=== PATIENT | male | born 1970 | race Caucasian/White ===

== ENCOUNTER 2016-04-15 12:13 | Emergency (ER) | payer MEDICAID ==
[2016-04-15 13:03] VITALS: BP 187/102
--- NOTE | 2016-04-15 13:57 | EDM.PDOC ---
ED HPI GENERAL MEDICAL PROBLEM - General Chief Complaint: General Stated Complaint: RIGHT PAIN Time Seen by Provider: 04/15/16 12:30 Source of Information: Reports: Patient History Limitations: Reports: No limitations - History of Present Illness INITIAL COMMENTS - FREE TEXT/NARRATIVE: 46-year-old male who's had a right inguinal hernia repair twice, including mesh placement is having difficulties again over the past several months. He has an appointment with a surgeon next week but this morning it was painful, swollen, and he was unable to reduce the hernia. He was very uncomfortable when he arrived in the emergency room, somewhat lightheaded. No fevers or chills. No change in bowel movements. Location: Reports: abdomen Quality: Reports: Sharp Severity: moderate Associated Symptoms: Reports: other (Dizziness and lightheadedness with standing ) Right Groin Pain Score (Numeric/FACES): 5 - Related Data Allergies Allergy/AdvReac Type Severity Reaction Status Date / Time No Known Allergies Allergy Verified 04/15/16 12:27 Home Meds: Home Meds Naproxen 500 mg PO BID 11/06/15 [History] Sertraline [Zoloft] 25 mg PO DAILY 11/06/15 [History] amLODIPine [Norvasc] 10 mg PO DAILY 11/06/15 [History] Hydrochlorothiazide 12.5 mg PO DAILY 04/15/16 [History] Past Medical History HEENT History: Reports: Impaired vision Other HEENT History: wears contacts occasionally Cardiovascular History: Reports: Hypertension Respiratory History: Reports: Sleep apnea Other Respiratory History: c-pap Musculoskeletal History: Reports: Fracture, Other (see below) Other Musculoskeletal History: history of broken foot many years ago Neurological History: Reports: Concussion Psychiatric History: Reports: Anxiety Dermatologic History: Reports: Cellulitis, Other (see below) Other Dermatologic History: "just getting over cellulitis to right leg" - Infectious Disease History Infectious Disease History: Reports: Chicken pox - Past Surgical History HEENT Surgical History: Reports: Tonsillectomy Cardiovascular Surgical History: Reports: None Respiratory Surgical History: Reports: None GI Surgical History: Reports: Hernia, inguinal, Other (see below) Other GI Surgeries/Procedures: right inguinal hernia repair done at least 4 years ago and 2016 Neurological Surgical History: Reports: None Musculoskeletal Surgical History: Reports: None Dermatological Surgical History: Reports: None Social & Family History - Family History Family Medical History: Noncontributory - Tobacco Use Smoking Status *Q: Never Smoker Tobacco Use Comment: currant some day smoker - Caffeine Use Caffeine Use: Reports: Soda - Alcohol Use Days Per Week of Alcohol Use: 4 Number of Drinks Per Day: 4 Total Drinks Per Week: 16 - Recreational Drug Use Recreational Drug Use: No ED ROS GENERAL - Review of Systems Review Of Systems: See Below Constitutional: Denies: fever, chills, malaise HEENT: Reports: No symptoms Respiratory: Denies: shortness of breath Endocrine: Denies: fatigue GI/Abdominal: Reports: Abdominal pain (Lower abdomen into the right groin) : Denies: frequency, urgency, urinary retention Musculoskeletal: Reports: no symptoms Neurological: Denies: headache Psychiatric: Reports: No symptoms ED EXAM, GENERAL - Physical Exam Exam: See Below Exam Limited By: No limitations General Appearance: alert, anxious, mild distress Respiratory/Chest: no respiratory distress Cardiovascular: regular rate, rhythm GI/Abdominal: soft, other (Patient has tenderness to the right groin area, exam for hernia today through the inguinal canal revealed firmness that resolved) Neurological: alert, oriented Course - Vital Signs Last Recorded V/S: Last Vital Signs Temp 99.1 F 04/15/16 12:23 Pulse 104 H 04/15/16 12:23 Resp 18 04/15/16 12:23 BP 187/102 H 04/15/16 12:23 Pulse Ox 98 04/15/16 12:23 - Orders/Labs/Meds Labs: Laboratory Tests 04/15/16 04/15/16 04/15/16 Range/Units 13:09 13:09 13:09 WBC 7.2 (4.5-11.0) K/uL RBC 4.99 (4.30-5.90) M/uL Hgb 16.9 H (12.0-15.0) g/dL Hct 47.0 (40.0-54.0) % MCV 94 (80-98) fL MCH 34 H (27-31) pg MCHC 36 (32-36) % Plt Count 256 (150-400) K/uL Neut % (Auto) 74 H (36-66) % Lymph % (Auto) 15 L (24-44) % [place] % (Auto) 10 H (2-6) % Eos % (Auto) 0 L (2-4) % Baso % (Auto) 1 (0-1) % Sodium 133 L (140-148) mmol/L Potassium 3.1 L (3.6-5.2) mmol/L Chloride 96 L (100-108) mmol/L Carbon Dioxide 26 (21-32) mmol/L Anion Gap 14.1 H (5.0-14.0) mmol/L BUN 17 (7-18) mg/dL Creatinine 0.9 (0.8-1.3) mg/dL Est Cr Clr Drug Dosing 113.77 mL/min Estimated GFR (MDRD) > 60 (>60) Glucose 124 H (74-106) mg/dL Lactic Acid 1.6 (0.4-2.0) mmol/L Calcium 8.7 (8.5-10.1) mg/dL Meds: Medications Discontinued Medications Generic Name Dose Route Start Last Admin Trade Name Freq PRN Reason Stop Dose Admin Sodium Chloride 85 mls @ 3 mls/sec 04/15/16 14:15 Normal Saline IV ASDIRECTED [facility] Iopamidol 150 ml 04/15/16 14:06 Isovue-300 (61%) IV 04/16/16 14:07 . DIRECTED PRN RADIOLOGY EXAM - Re-Assessments/Exams Free Text/Narrative Re-Assessment/Exam: 04/15/16 14:00 Patient's symptoms seemed to improve in the emergency room as a result of possible reduction of the hernia. A CBC lactic acid and BMP were obtained which were normal. An attempt was made to contact Dr. Moran his regular surgeon, and his situation was also discussed with Dr. Carolina. A CT of the abdomen and pelvis with IV contrast was obtained. 04/15/16 17:42 CT showed a fairly long fat-containing inguinal hernia on the right side with a small amount of stranding but no bowel or other material in the hernia. His pain continued to improve. Patient will return if symptoms recur or but he is planning on calling the surgical Department tomorrow to try to move his appointment closer to discuss surgery. Departure - Departure Time of Disposition: 14:49 Disposition: Home, Self-Care 01 Condition: good Clinical Impression: Inguinal hernia recurrent unilateral Qualifiers: Obstruction and gangrene presence: without obstruction or gangrene Qualified Code(s): K40.91 - Unilateral inguinal hernia, without obstruction or gangrene, recurrent Instructions: Inguinal Hernia, Adult, [id number] Referrals: PCP,None [Primary Care Provider] - Forms: ED Department Discharge Care Plan Goals: Call the clinic tomorrow to attempt to move up appt with Dr. Moran. Return sooner if concerns or recurring symptoms.
[2016-04-15] MEDS ORDERED: Iopamidol 612 MG/ML 150 ML Bottle IV PRN (14:06)
--- NOTE | 2016-04-15 14:38 | CT ---
Abdomen Pelvis w Cont HISTORY: Right groin pain. Dose: Total DLP 1433. COMPARISON: None FINDINGS: Lung bases are clear. Diffuse fatty infiltration of the liver. No focal liver lesions seen . The spleen, pancreas, adrenal glands, abdominal aorta and kidneys appear normal. The appendix appears normal. In the right inguinal region there is a fat-containing hernia measuring 4.7 cm transverse x 2.5 cm AP by 9 to 10 cm craniocaudal. Tiny fat-containing left inguinal hernia. Just above the inguinal hernia within the pelvis there is some very faint stranding to the mesenter y best seen on coronal image 40 and axial image 106. This could represent mild edema or venous conge stion. The remainder the pelvis is unremarkable. Impression: Fat-containing right inguinal hernia not involving any bowel loops. Just at the superior margin of t he fat extending into the right inguinal canal is some very faint stranding which could represent so me very mild nonspecific edema.
== END 2016-04-15 14:49 | disposition home or self-care (01) ==
LOC: JP.ED 12:13
DX: K40.91 Unilateral inguinal hernia, without obstruction or gangrene, recurrent (principal); I10 Essential (primary) hypertension; F41.9 Anxiety disorder, unspecified; Z98.890 Other specified postprocedural states; Z79.899 Other long term (current) drug therapy
CPT/HCPCS: 36415; 74177; 74177-26; 80048; 83605; 85025; 99284-25

== ENCOUNTER 2016-04-23 08:57 | Day surgery (SDC) | payer MEDICAID ==
[~2016-04-23 08:57] MED LIST: Bupivacaine 0.5%/EPINEPHrine 1:200,000 50 ML MDV ONE
[2016-04-23] MEDS ORDERED: Sodium Chloride 0.9% 1,000 ML IV SCH (09:00)
[2016-04-23] MEDS ORDERED: metroNIDAZOLE/Normal Saline 500 MG in Premix Bag 1 BAG IV ONE (10:00)
[2016-04-23] MEDS ORDERED: ceFAZolin 2 GM in Premix Bag 1 BAG IV ONE (10:00)
[2016-04-23] MEDS ORDERED: fentaNYL 250 MCG/5 ML SDV ONE (10:28)
[2016-04-23] MEDS ORDERED: Propofol 200 MG/20 ML SDV ONE ×3 (10:28→10:44)
[2016-04-23] MEDS ORDERED: Midazolam 1 MG/ML 2 ML SDV ONE (10:28)
[2016-04-23] MEDS ORDERED: Bupivacaine 0.5% 50 ML MDV ONE (10:29)
[2016-04-23] MEDS ORDERED: Lidocaine 1% with EPINEPHrine 1:100,000 50 ML MDV ONE (10:29)
[2016-04-23] MEDS ORDERED: Ondansetron 4 MG/2 ML SDV ONE (10:55)
[2016-04-23] MEDS ORDERED: Succinylcholine/Normal Saline 200 MG/10 ML Syringe ONE (10:55)
[2016-04-23] MEDS ORDERED: Rocuronium 50 MG/5 ML Vial ONE (10:55)
[2016-04-23] MEDS ORDERED: Dexamethasone 4 MG/ML SDV ONE (10:55)
[2016-04-23] MEDS ORDERED: Neostigmine Methylsulfate 1 MG/ML 5 ML Syringe ONE (11:04)
[2016-04-23] MEDS ORDERED: Acetaminophen/HYDROcodone 325-5 MG Tab PO ONE (13:58)
[2016-04-23 14:39] VITALS: BP 147/82
--- NOTE | 2016-05-15 08:54 | OR ---
DATE OF PROCEDURE: 04/23/2016 PROCEDURE: Repair of inguinal hernia, right, recurrent. COMPLICATIONS: None. FOUNDRY TENDER: None. ANESTHESIA: MAC converted to general. PROCEDURE IN DETAIL: The patient was placed in supine position. The right inguinal area was readily identified. A curvilinear incision was made from the area of the ring about 5 cm lateral. This was then carried down with electrocautery to the external oblique aponeurosis, which was opened with a 15 blade and subsequently Metzenbaum scissors. The patient was noted to have recurrent incarcerated non-strangulated hernia. Over the next approximately 15-20 minutes, dissection was performed by identifying the sac and dissecting the sac free from its cord structures. This was then placed deep into the abdomen using a plug and patch system, which was stitched in with #0 Vicryl suture. 0 Vicryl was used to suture this in, and careful attention was made not to put undue tension on the cord structures. 3-0 Vicryl was used to close the external oblique aponeurosis after irrigation. Subcutaneous tissue was closed with 3-0 Vicryl. Skin was closed with 4-0 Vicryl. All in a running fashion. Dermabond was applied. The patient tolerated the procedure well. Dusty Moran MD /[id number]
== END 2016-04-23 14:30 | disposition home or self-care (01) ==
LOC: JP.SDS 08:57
PROVIDERS: ATTEND Surgery
PROC: 0YU50JZ Supplement Right Inguinal Region with Synthetic Substitute, Open Approach (ICD-10-PCS; principal; 2016-04-23)
DX: K40.90 Unilateral inguinal hernia, without obstruction or gangrene, not specified as recurrent (principal); I10 Essential (primary) hypertension; F41.9 Anxiety disorder, unspecified; G47.33 Obstructive sleep apnea (adult) (pediatric); E66.9 Obesity, unspecified; Z68.35 Body mass index [BMI] 35.0-35.9, adult; Z87.891 Personal history of nicotine dependence
CPT/HCPCS: 49521; A9270; C1781; J0690; J1100; J2250; J2405; J2704; J3010; J7040

== ENCOUNTER 2016-08-09 13:28 | Emergency (ER) | payer MEDICAID ==
[2016-08-09 13:42] VITALS: BP 146/84
[2016-08-09] MEDS ORDERED: HYDROmorphone 1 MG/ML Syringe IVPUSH ONE (13:46)
[2016-08-09] MEDS ORDERED: Ondansetron 4 MG/2 ML SDV IVPUSH ONE (13:46)
[2016-08-09] MEDS ORDERED: Sodium Chloride 0.9% 10 ML Syringe FLUSH PRN (13:47)
--- NOTE | 2016-08-09 13:57 | EDM.PDOC ---
ED HPI GENERAL MEDICAL PROBLEM - General Stated Complaint: R LEG INJURY Time Seen by Provider: 08/09/16 13:46 Source of Information: Reports: Patient, Family, RN Notes Reviewed History Limitations: Reports: No Limitations - History of Present Illness INITIAL COMMENTS - FREE TEXT/NARRATIVE: 46-year-old gentleman presents emergency department today following trauma at home a he was unloading logs from a skid steer one of the box fell landed on his right thigh and onto his right foot he's experiencing pain in his thigh and his foot he did not lose consciousness the log did not hit any place else he did not fall to the ground. Right Leg Pain Score (Numeric/FACES): 10 - Related Data Allergies Allergy/AdvReac Type Severity Reaction Status Date / Time No Known Allergies Allergy Verified 08/09/16 14:20 Home Meds: Home Meds Naproxen 500 mg PO BID 11/06/15 [History] Sertraline [Zoloft] 25 mg PO DAILY 11/06/15 [History] amLODIPine [Norvasc] 10 mg PO DAILY 11/06/15 [History] Hydrochlorothiazide 25 mg PO DAILY 04/15/16 [History] Past Medical History HEENT History: Reports: Impaired Vision Other HEENT History: wears contacts occasionally Cardiovascular History: Reports: Hypertension Respiratory History: Reports: Sleep Apnea Other Respiratory History: c-pap Musculoskeletal History: Reports: Fracture, Other (See Below) Other Musculoskeletal History: history of broken foot many years ago Neurological History: Reports: Concussion Psychiatric History: Reports: Anxiety Dermatologic History: Reports: Cellulitis, Other (See Below) Other Dermatologic History: "just getting over cellulitis to right leg" - Infectious Disease History Infectious Disease History: Reports: Chicken Pox - Past Surgical History GI Surgical History: Reports: Hernia, Inguinal, Other (See Below) Social & Family History - Family History Family Medical History: Noncontributory - Tobacco Use Smoking Status *Q: Current Some Day Smoker Years of Tobacco use: 2 Packs/Tins Daily: 0.5 Used Tobacco, but Quit: No Second Hand Smoke Exposure: No - Caffeine Use Caffeine Use: Reports: Soda - Alcohol Use Days Per Week of Alcohol Use: 6 Number of Drinks Per Day: 6 Total Drinks Per Week: 36 - Recreational Drug Use Recreational Drug Use: No Review of Systems - Review of Systems Review Of Systems: See Below Constitutional: Reports: No Symptoms Respiratory: Reports: No Symptoms Cardiovascular: Reports: No Symptoms GI/Abdominal: Reports: No Symptoms Musculoskeletal: Reports: Leg Pain Skin: Reports: No Symptoms Neurological: Reports: No Symptoms ED EXAM, GENERAL - Physical Exam Exam: See Below Free Text/Narrative:: Primary survey GCS of 15 airway is open patent clear lungs are clear to auscultation bilaterally cardiovascular demonstrates regular rate and rhythm S1-S2 Secondary survey Examination of lower extremity pelvic rock is negative he has a large hematoma superior to the knee on the right side there is significant bruising appreciated in this area about the size of a basketball he is exquisitely tender to the touch he has no difficulty moving his knee however when he does bend his knee does cause pain in the thigh there is no tenderness to palpation to the calf muscle he has full range of motion of his ankle without tenderness he does have tenderness to the distal aspect of his foot pedal pulses 2+ Tertiary survey After cleansing of the right foot and soaking were able to identify a laceration approximately 1 cm in length at the distal phalangeal joint plantar surface digit #2 Respiratory/Chest: No Respiratory Distress, Lungs Clear, Normal Breath Sounds, No Accessory Muscle Use Cardiovascular: Regular Rate, Rhythm, No Murmur GI/Abdominal: Soft, Non-Tender ED TRAUMA EXTREMITY PROCEDURES - Laceration/Wound Repair Right Foot Lac/Wound Length In cm: 1 Appearance: Subcutaneous, Linear Distal NVT: Neuro & Vascular Intact, No Tendon Injury Anesthetic Type: Digital Local Anesthesia - Lidocaine (Xylocaine): 1% Plain Local Anesthetic Volume: 3cc Skin Prep: Saline Saline Irrigation (cc's): 120 Exploration/Debridement/Repair: Wound Explored, in a Bloodless Field, Explored to Base Closed With: Sutures Suture Size: 4-0 # of Sutures: 2 Suture Type: Prolene Sterile Dressing Applied: Nurse Tetanus Status Addressed: Yes Complications: No Course - Vital Signs Last Recorded V/S: Last Vital Signs Temp 98.2 F 08/09/16 13:41 Pulse 79 08/09/16 13:41 Resp 22 H 08/09/16 13:41 BP 146/84 H 08/09/16 13:41 Pulse Ox 100 08/09/16 13:41 - Orders/Labs/Meds Orders: Active Orders 24 hr Category Date Time Status Peripheral IV Care [RC] . DIRECTED Care 08/09/16 13:48 Active Femur Min 2V Rt [CR] Stat Exams 08/09/16 13:47 Taken Foot Comp Min 3V Rt [CR] Stat Exams 08/09/16 13:47 Taken Knee 1V or 2V Rt [CR] Stat Exams 08/09/16 13:47 Taken Tibia Fibula Rt [CR] Stat Exams 08/09/16 13:47 Taken Sodium Chloride 0.9% [Saline Flush] Med 08/09/16 13:47 Active 10 ml FLUSH ASDIRECTED PRN Peripheral IV Insertion Adult [OM.PC] Urgent Oth 08/09/16 13:47 Ordered Medication Orders Sodium Chloride (Saline Flush) 10 ml FLUSH ASDIRECTED PRN PRN Reason: Keep Vein Open Last Admin: 08/09/16 14:04 Dose: 10 ml Labs: Laboratory Tests 08/09/16 08/09/16 Range/Units 13:47 13:47 WBC 5.7 (4.5-11.0) K/uL RBC 4.18 L (4.30-5.90) M/uL Hgb 15.6 H (12.0-15.0) g/dL Hct 40.1 (40.0-54.0) % MCV 96 (80-98) fL MCH 37 H (27-31) pg MCHC 39 H (32-36) % Plt Count 194 (150-400) K/uL Neut % (Auto) 46 (36-66) % Lymph % (Auto) 21 L (24-44) % [place] % (Auto) 30 H (2-6) % Eos % (Auto) 0 L (2-4) % Baso % (Auto) 2 H (0-1) % Sodium 128 L (140-148) mmol/L Potassium 3.7 (3.6-5.2) mmol/L Chloride 93 L (100-108) mmol/L Carbon Dioxide 21 (21-32) mmol/L Anion Gap 17.7 H (5.0-14.0) mmol/L BUN 16 (7-18) mg/dL Creatinine 0.8 (0.8-1.3) mg/dL Est Cr Clr Drug Dosing 127.99 mL/min Estimated GFR (MDRD) > 60 (>60) Glucose 280 H (74-106) mg/dL Calcium 10.5 H D (8.5-10.1) mg/dL Meds: Medications Generic Name Dose Route Start Last Admin Trade Name Juddq PRN Reason Stop Dose Admin Sodium Chloride 10 ml 08/09/16 13:47 08/09/16 14:04 Saline Flush FLUSH 10 ml ASDIRECTED PRN Administration Keep Vein Open Discontinued Medications Generic Name Dose Route Start Last Admin Trade Name Juddq PRN Reason Stop Dose Admin Bacitracin 1 dose 08/09/16 15:11 Bacitracin Oint 1 Gm TOP 08/09/16 15:12 ONETIME ONE Cefazolin Sodium 1 gm 08/09/16 15:30 Ancef IM 08/09/16 15:31 ONETIME ONE Hydromorphone HCl 1 mg 08/09/16 13:46 08/09/16 13:58 Dilaudid IVPUSH 08/09/16 13:47 1 mg ONETIME ONE Administration Lidocaine HCl 5 ml 08/09/16 15:18 Xylocaine-Mpf 1% INJECT 08/09/16 15:19 ONETIME ONE Ondansetron HCl 4 mg 08/09/16 13:46 08/09/16 13:56 Zofran IVPUSH 08/09/16 13:47 4 mg ONETIME ONE Administration Departure - Departure Time of Disposition: 16:07 Disposition: Home, Self-Care 01 Condition: Good Clinical Impression: Closed fracture of phalanx of right great toe Qualifiers: Encounter type: initial encounter Phalanx: distal Fracture alignment: nondisplaced Qualified Code(s): S92.424A - Nondisplaced fracture of distal phalanx of right great toe, initial encounter for closed fracture Thigh hematoma Qualifiers: Encounter type: initial encounter Laterality: right Qualified Code(s): S70.11XA - Contusion of right thigh, initial encounter Laceration of toe, right Qualifiers: Encounter type: initial encounter Toe: lesser toe Damage to nail status: without damage Foreign body presence: without foreign body Qualified Code(s): S91.114A - Laceration without foreign body of right lesser toe(s) without damage to nail, initial encounter - Discharge Information Additional Instructions: Use ibuprofen for baseline pain control, use hydrocodone for breakthrough pain, remaining a boot until reevaluated by orthopedics tomorrow call return to the ED with worsening of symptoms suture removal in 10 days - My Orders Last 24 Hours: My Active Orders 08/09/16 13:47 Femur Min 2V Rt [CR] Stat Foot Comp Min 3V Rt [CR] Stat Knee 1V or 2V Rt [CR] Stat Tibia Fibula Rt [CR] Stat Sodium Chloride 0.9% [Saline Flush] 10 ml FLUSH ASDIRECTED PRN Peripheral IV Insertion Adult [OM.PC] Urgent 08/09/16 13:48 Peripheral IV Care [RC] . DIRECTED - Assessment/Plan Last 24 Hours: My Active Orders 08/09/16 13:47 Femur Min 2V Rt [CR] Stat Foot Comp Min 3V Rt [CR] Stat Knee 1V or 2V Rt [CR] Stat Tibia Fibula Rt [CR] Stat Sodium Chloride 0.9% [Saline Flush] 10 ml FLUSH ASDIRECTED PRN Peripheral IV Insertion Adult [OM.PC] Urgent 08/09/16 13:48 Peripheral IV Care [RC] . DIRECTED Plan: Assessment Acuity = acute Site and laterality = distal phalangeal fracture great toe right foot with thigh hematoma Etiology = secondary to logging trauma Manifestations = pain Location of injury = home Lab values = blood work unreliable secondary to severe lipemia, x-rays femur knee tib-fib show no fracture, x-ray of the foot shows a distal phalangeal fracture official read radiology is pending Plan Discuss case with orthopedics they agreed to see him tomorrow in clinic he will be placed in a boot [employer] Walker he has crutches at home he will need use if needed, also has hydrocodone to use if needed, tetanus 3 years ago he was provided 1 g Ancef today Patient was in agreement with the plan all questions were answered, they were instructed to return to the emergency department or call for worsening symptoms. This note was dictated using [employer] voice recognition software please call with any questions.
[2016-08-09] MEDS ORDERED: Bacitracin Oint 1 GM U/D Packet TOP ONE (15:11)
[2016-08-09] MEDS ORDERED: ceFAZolin 1 GM Vial IM ONE (15:30)
[2016-08-09] MEDS ORDERED: ceFAZolin 1 GM Vial ONE (16:14)
[2016-08-09] MEDS ORDERED: Water For Injection, Sterile 10 ML SDV ONE (16:18)
--- NOTE | 2016-08-10 09:23 | CR ---
Femur Min 2V Rt HISTORY: Trauma COMPARISON: None FINDINGS: Right femur demonstrates no fracture. No dislocation of the right hip.
--- NOTE | 2016-08-10 09:24 | CR ---
Knee 1V or 2V Rt HISTORY: Trauma COMPARISON: None FINDINGS: No fracture or effusion. No bony destructive process seen. Well corticated calcification a t the lower margin of the patella likely representing old trauma or possibly calcification of a port ion of the patellar tendon.
--- NOTE | 2016-08-10 09:25 | CR ---
Tibia Fibula Rt HISTORY: Trauma COMPARISON: None FINDINGS: Right tibia fibula demonstrate no fracture or bony destructive process.
--- NOTE | 2016-08-10 09:26 | CR ---
Foot Comp Min 3V Rt HISTORY: Trauma COMPARISON: None FINDINGS: Comminuted fracture of the distal phalanx of the great toe. Small fracture of the tuft of the second toe as well. Mild degenerative change first MTP joint. Small spur inferior calcaneus.
== END 2016-08-09 17:05 | disposition home or self-care (01) ==
LOC: JP.ED 13:28
DX: S92.424A Nondisplaced fracture of distal phalanx of right great toe, initial encounter for closed fracture (principal); S91.114A Laceration without foreign body of right lesser toe(s) without damage to nail, initial encounter; S70.11XA Contusion of right thigh, initial encounter; H54.7 Unspecified visual loss; I10 Essential (primary) hypertension; F17.210 Nicotine dependence, cigarettes, uncomplicated; Z79.899 Other long term (current) drug therapy; W20.8XXA Other cause of strike by thrown, projected or falling object, initial encounter
CPT/HCPCS: 12001; 36415; 73552; 73560; 73590; 73630; 80048; 85025; 96374; 96375; 99284; J0690; J1170; J2405; J7050

== ENCOUNTER 2016-08-11 20:05 | Emergency (ER) | payer MEDICAID ==
[2016-08-11 21:22] VITALS: BP 138/88
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
[2016-08-11] MEDS ORDERED: HYDROmorphone 1 MG/ML Syringe IM ONE (22:27)
== END 2016-08-11 22:41 | disposition home or self-care (01) ==
LOC: JP.ED 20:05
DX: S80.11XD Contusion of right lower leg, subsequent encounter (principal); I10 Essential (primary) hypertension; F41.9 Anxiety disorder, unspecified; F17.210 Nicotine dependence, cigarettes, uncomplicated; Z79.899 Other long term (current) drug therapy; W22.8XXD Striking against or struck by other objects, subsequent encounter
CPT/HCPCS: 36415; 80048; 85025; 85610; 96372; 99284; J1170

== ENCOUNTER 2016-08-12 10:46 | Day surgery (SDC) | payer MEDICAID ==
[~2016-08-12 10:46] MED LIST changes: +Bupivacaine 0.5% 50 ML MDV ONE; -Bupivacaine 0.5%/EPINEPHrine 1:200,000 50 ML MDV ONE; +Lidocaine 1% with EPINEPHrine 1:100,000 50 ML MDV ONE
[2016-08-12] MEDS ORDERED: Lactated Ringers 1,000 ML IV SCH (11:30)
[2016-08-12] MEDS ORDERED: Midazolam 1 MG/ML 2 ML SDV ONE (12:54)
[2016-08-12] MEDS ORDERED: fentaNYL 100 MCG/2 ML SDV ONE (12:54)
[2016-08-12] MEDS ORDERED: Propofol 200 MG/20 ML SDV ONE ×4 (12:54→13:24)
[2016-08-12 14:24] VITALS: BP 104/40
--- NOTE | 2016-08-12 14:27 | US ---
Extremity Non Vascular Rt HISTORY: Hematoma. COMPARISON: None FINDINGS: Patient had injury to right thigh on Wednesday. There is a complex area seen in the area of t rauma measuring 7.3 x 3.2 x 5.3 cm compatible with hematoma. This is fairly complex and would likely not be drainable percutaneously.
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
== END 2016-08-12 14:36 | disposition home or self-care (01) ==
LOC: JP.SDS 10:46
PROVIDERS: ATTEND Surgery
DX: S70.11XA Contusion of right thigh, initial encounter (principal); I10 Essential (primary) hypertension; G47.30 Sleep apnea, unspecified; F41.9 Anxiety disorder, unspecified; Z79.899 Other long term (current) drug therapy; W22.8XXA Striking against or struck by other objects, initial encounter; Z98.890 Other specified postprocedural states; F17.210 Nicotine dependence, cigarettes, uncomplicated
CPT/HCPCS: 27301; 76881; J2250; J2704; J3010; J7120; 88304

== ENCOUNTER → 2016-10-09 | Day surgery (SDC) | payer MEDICAID ==
[~2016-10-09] MED LIST changes: +Ketorolac 60 MG/2 ML SDV ONE; +Midazolam 1 MG/ML 2 ML SDV ONE; +Propofol 200 MG/20 ML SDV ONE; +Sodium Chloride 0.9% 1,000 ML IV SCH; +ceFAZolin 2 GM in Sodium Chloride 0.9% 50 ML IV ONE; +fentaNYL 100 MCG/2 ML SDV ONE
[2016-10-09 11:40] VITALS: BP 162/99
--- NOTE | 2016-10-12 07:45 | OR ---
DATE OF PROCEDURE: 10/09/2016 PROCEDURE: Evacuation hematoma, right side. COMPLICATIONS: None. PREOPERATIVE DIAGNOSIS: Hematoma. POSTOPERATIVE DIAGNOSIS: Hematoma. RISK: Risks, benefits, alternatives, limitations including, but not limited to infection, bleeding, perforation, and a recurrent surgery were explained and patient wished to proceed. PROCEDURE IN DETAIL: The patient was placed in supine position. The leg was prepped and draped. This was anesthetized with 1% lidocaine. A 1 cm incision was made, and this was carried down to the area of the hematoma. There was very minimal hematoma noted. This confirmed to be the correct location as this was marked with ultrasound and as at the correct depth. This was thoroughly irrigated. The wound was closed with 3-0 Vicryl and 4-0 Prolene thereafter in running fashion, and a piece of quarter-inch iodoform gauze was placed in there. Dusty Moran MD /[id number]
== END ==
LOC: JP.SDS 07:59
PROVIDERS: ATTEND Surgery
DX: S70.11XD Contusion of right thigh, subsequent encounter (principal); I10 Essential (primary) hypertension; F10.10 Alcohol abuse, uncomplicated; E87.1 Hypo-osmolality and hyponatremia; E66.9 Obesity, unspecified; F41.9 Anxiety disorder, unspecified; G47.33 Obstructive sleep apnea (adult) (pediatric); F17.210 Nicotine dependence, cigarettes, uncomplicated; Z99.89 Dependence on other enabling machines and devices; Z98.890 Other specified postprocedural states; Z79.899 Other long term (current) drug therapy; Z68.41 Body mass index [BMI] 40.0-44.9, adult
CPT/HCPCS: 10140; 76998; J0690; J1885; J2250; J2704; J3010; J7040; J7050

== ENCOUNTER 2016-10-15 12:47 | Emergency (ER) | payer MEDICAID ==
[2016-10-15 13:09] VITALS: BP 161/105
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
--- NOTE | 2016-10-15 14:29 | CT ---
Head wo Cont INDICATION: Seizure. Dose: Total DLP 910. FINDINGS: No acute intracranial hemorrhage, mass, or edema. Visualized portions of the paranasal sinu ses and mastoid air cells are clear. Soft tissues are negative. IMPRESSION: Negative head CT.
== END 2016-10-15 15:38 | disposition home or self-care (01) ==
LOC: JP.ED 12:47
DX: G40.89 Other seizures (principal); S00.532A Contusion of oral cavity, initial encounter; I10 Essential (primary) hypertension; F32.9 Major depressive disorder, single episode, unspecified; F41.9 Anxiety disorder, unspecified; F17.210 Nicotine dependence, cigarettes, uncomplicated; Z79.899 Other long term (current) drug therapy; Z98.890 Other specified postprocedural states; X58.XXXA Exposure to other specified factors, initial encounter
CPT/HCPCS: 36415; 70450; 70450-26; 80053; 83735; 85025; 99284-25

== ENCOUNTER 2017-06-15 08:40 | Inpatient (IN) | payer MEDICAID ==
--- NOTE | 2017-06-15 09:24 | EDM.PDOC ---
ED HPI GENERAL MEDICAL PROBLEM - General Chief Complaint: Abdominal Pain Stated Complaint: MID EPIGASTRIC PAIN,VOMITING Time Seen by Provider: 06/15/17 09:20 Source of Information: Reports: Patient History Limitations: Reports: No Limitations - History of Present Illness INITIAL COMMENTS - FREE TEXT/NARRATIVE: Pt arrived with very pain in the epigastric area. The pain at this point is better. He had very severe pain yesterday and less today. As the day has passed it has gradually gotten better. Onset: Gradual Duration: Day(s):, Other (He has been doing some vomiting for about 1 week. ) Location: Reports: Abdomen Associated Symptoms: Reports: No Other Symptoms Upper Abdominal Pain Score (Numeric/FACES): 4 - Related Data Allergies Allergy/AdvReac Type Severity Reaction Status Date / Time No Known Allergies Allergy Verified 10/09/16 08:47 Home Meds: Home Meds Naproxen 500 mg PO ASDIRECTED PRN 11/06/15 [History] amLODIPine [Norvasc] 10 mg PO DAILY 11/06/15 [History] Hydrochlorothiazide 25 mg PO DAILY 04/15/16 [History] Sertraline [Zoloft] 25 mg PO DAILY 06/15/17 [History] Past Medical History HEENT History: Reports: Impaired Vision Other HEENT History: wears contacts occasionally Cardiovascular History: Reports: Hypertension Respiratory History: Reports: Sleep Apnea Other Respiratory History: c-pap Gastrointestinal History: Reports: None Genitourinary History: Reports: None Musculoskeletal History: Reports: Fracture, Other (See Below) Other Musculoskeletal History: history of broken foot many years ago cURRENT FX R GREAT TOE Neurological History: Reports: Concussion Psychiatric History: Reports: Anxiety Endocrine/Metabolic History: Reports: None Hematologic History: Reports: None Immunologic History: Reports: None Oncologic (Cancer) History: Reports: None Dermatologic History: Reports: Cellulitis Other Dermatologic History: "just getting over cellulitis to right leg" - Infectious Disease History Infectious Disease History: Reports: Chicken Pox, MRSA Other Infectious Disease History: MRSA RIGHT KNEE 4 YEARS AGO - Past Surgical History Head Surgeries/Procedures: Reports: None HEENT Surgical History: Reports: Tonsillectomy Cardiovascular Surgical History: Reports: None Respiratory Surgical History: Reports: None GI Surgical History: Reports: Hernia, Inguinal Neurological Surgical History: Reports: None Musculoskeletal Surgical History: Reports: None Social & Family History - Family History Family Medical History: Noncontributory - Tobacco Use Smoking Status *Q: Heavy Tobacco Smoker Years of Tobacco use: 2 Packs/Tins Daily: 0.5 Used Tobacco, but Quit: No Second Hand Smoke Exposure: No - Caffeine Use Caffeine Use: Reports: Soda - Alcohol Use Days Per Week of Alcohol Use: 7 Number of Drinks Per Day: 2 Total Drinks Per Week: 14 - Recreational Drug Use Recreational Drug Use: No ED ROS GENERAL - Review of Systems Review Of Systems: See Below Constitutional: Reports: No Symptoms HEENT: Reports: No Symptoms Respiratory: Reports: No Symptoms Cardiovascular: Reports: No Symptoms Endocrine: Reports: No Symptoms GI/Abdominal: Reports: Abdominal Pain, Vomiting, Other ( emesis looks coffee ground) : Reports: No Symptoms Musculoskeletal: Reports: No Symptoms Skin: Reports: No Symptoms ED EXAM, GI/ABD - Physical Exam Exam: See Below Text/Narrative:: pt arrived with a history of upper abdomanal pain which was very severe yesterday but still present to a lesser degree today. He has been vomiting coffee ground material. He has a history of vomiting on and off for 2 weeks. He began to notice the coffee ground material in the last few days. He is scheduled for a rt inguinal hernia repair in [place] next week. Exam Limited By: No Limitations General Appearance: Alert, Moderate Distress Eyes: Bilateral: Normal Appearance, EOMI Ears: Normal TMs Nose: Normal Inspection Throat/Mouth: Normal Inspection Head: Atraumatic Neck: Normal Inspection Respiratory/Chest: No Respiratory Distress Cardiovascular: Regular Rate, Rhythm GI/Abdominal Exam: Other ( Mild epigastri tenderness) (Male) Exam: Deferred Rectal (Males) Exam: Deferred Back Exam: Normal Inspection Extremities: Normal Inspection Neurological: Alert, Oriented, Normal Cognition Psychiatric: Anxious Course - Vital Signs Last Recorded V/S: Last Vital Signs Temp 37.0 C 06/15/17 09:14 Pulse 69 06/15/17 09:14 Resp 18 06/15/17 09:14 BP 137/82 06/15/17 09:14 Pulse Ox 98 06/15/17 09:14 - Orders/Labs/Meds Orders: Active Orders 24 hr Category Date Time Status Abdomen Ltd [US] Stat Exams 06/15/17 10:24 Taken Abdomen Pelvis w Cont [CT] Stat Exams 06/15/17 10:52 Taken UA W/MICROSCOPIC [URIN] Urgent Lab 06/15/17 09:05 Ordered Iopamidol [Isovue-300 (61%)] Med 06/15/17 11:15 Active 150 ml IV . DIRECTED Sodium Chloride 0.9% [Normal Saline] 1,000 ml Med 06/15/17 09:30 Active IV ASDIRECTED Sodium Chloride 0.9% [Normal Saline] 1,000 ml Med 06/15/17 10:30 Active IV ASDIRECTED Sodium Chloride 0.9% [Saline Flush] Med 06/15/17 11:05 Active 10 ml FLUSH ONETIME PRN Medication Orders Sodium Chloride (Normal Saline) 1,000 mls @ 999 mls/hr IV ASDIRECTED [facility] Last Admin: 06/15/17 09:35 Dose: 999 mls/hr Sodium Chloride (Normal Saline) 1,000 mls @ 999 mls/hr IV ASDIRECTED [facility] Last Admin: 06/15/17 10:57 Dose: 999 mls/hr Iopamidol (Isovue-300 (61%)) 150 ml IV . DIRECTED [facility] Last Admin: 06/15/17 11:16 Dose: 150 ml Sodium Chloride (Saline Flush) 10 ml FLUSH ONETIME PRN PRN Reason: PER RADIOLOGY PROTOCOL Last Admin: 06/15/17 11:16 Dose: 10 ml Labs: Laboratory Tests 06/15/17 06/15/17 06/15/17 Range/Units 09:05 09:16 09:16 WBC 6.4 (4.5-11.0) K/uL RBC 4.15 L (4.30-5.90) M/uL Hgb 14.3 D (12.0-15.0) g/dL Hct 39.2 L (40.0-54.0) % MCV 95 (80-98) fL MCH 35 H (27-31) pg MCHC 37 H (32-36) % Plt Count 99 L (150-400) K/uL Neut % (Auto) 74 H (36-66) % Lymph % (Auto) 15 L (24-44) % [place] % (Auto) 11 H (2-6) % Eos % (Auto) 0 L (2-4) % Baso % (Auto) 1 (0-1) % Sodium 131 L (140-148) mmol/L Potassium 3.5 L (3.6-5.2) mmol/L Chloride 93 L (100-108) mmol/L Carbon Dioxide 24 (21-32) mmol/L Anion Gap 17.5 H (5.0-14.0) mmol/L BUN 9 (7-18) mg/dL Creatinine 0.7 L (0.8-1.3) mg/dL Est Cr Clr Drug Dosing 144.73 mL/min Estimated GFR (MDRD) > 60 (>60) Glucose 181 H (74-106) mg/dL Calcium 6.7 L* D (8.5-10.1) mg/dL Total Bilirubin 1.7 H (0.2-1.0) mg/dL AST 227 H D (15-37) U/L ALT 63 (12-78) U/L Alkaline Phosphatase 208 H D (46-116) U/L Total Protein 6.1 L (6.4-8.2) g/dL Albumin 2.5 L (3.4-5.0) g/dL Globulin 3.6 H (2.3-3.5) g/dL Albumin/Globulin Ratio 0.7 L (1.2-2.2) Amylase 48 (25-115) U/L Lipase 667 H (73-393) U/L Urine Color Yellow Urine Appearance Clear Urine pH 7.0 (4.5-8.0) Ur Specific [place] 1.010 (1.008-1.030) Urine Protein Negative (NEGATIVE) mg/dL Urine Glucose (UA) Normal (NEGATIVE) mg/dL Urine Ketones Negative (NEGATIVE) mg/dL Urine Occult Blood Negative (NEGATIVE) Urine Nitrite Negative (NEGAITVE) Urine Bilirubin Negative (NEGATIVE) Urine Urobilinogen 1 (NORMAL) mg/dL Ur Leukocyte Esterase Negative (NEGATIVE) Urine RBC 0-5 (0-5) Urine WBC Not seen (0-5) Ur Epithelial Cells Not seen Amorphous Sediment Few Urine Bacteria Not seen Urine Mucus Not seen Meds: Medications Generic Name Dose Route Start Last Admin Trade Name Freq PRN Reason Stop Dose Admin Sodium Chloride 1,000 mls @ 999 mls/hr 06/15/17 09:30 06/15/17 09:35 Normal Saline IV 999 mls/hr ASDIRECTED [facility] Administration Sodium Chloride 1,000 mls @ 999 mls/hr 06/15/17 10:30 06/15/17 10:57 Normal Saline IV 999 mls/hr ASDIRECTED [facility]STELLE Administration Iopamidol 150 ml 06/15/17 11:15 06/15/17 11:16 Isovue-300 (61%) IV 150 ml . DIRECTED [facility] Administration Sodium Chloride 10 ml 06/15/17 11:05 06/15/17 11:16 Saline Flush FLUSH 10 ml ONETIME PRN Administration PER RADIOLOGY PROTOCOL Discontinued Medications Generic Name Dose Route Start Last Admin Trade Name Jo PRN Reason Stop Dose Admin Sodium Chloride 85 mls @ 3 mls/sec 06/15/17 11:05 06/15/17 11:16 Normal Saline IV 06/15/17 11:06 3 mls/sec ONETIME ONE Administration Pantoprazole Sodium 40 mg 06/15/17 10:22 06/15/17 10:57 Protonix Iv IVPUSH 06/15/17 10:23 40 mg ONETIME ONE Administration - Re-Assessments/Exams Free Text/Narrative Re-Assessment/Exam: 06/15/17 11:35 Pt has an elevated lipase, his liver enzymes are elevated, His cat scan of the abdoman shows stranding around the pancreas. His serum is very hyperlipemic Departure - Departure Time of Disposition: 11:37 Disposition: Admitted As Inpatient 67 Condition: Fair Clinical Impression: Hyperlipemia, Pancreatitis, Coffee ground emesis, Hyperglycemia, Enlarged liver - Discharge Information Referrals: PCP,None [Primary Care Provider] - Forms: ED Department Discharge Care Plan Goals: admit to Dr montero - My Orders Last 24 Hours: My Active Orders 06/15/17 09:05 UA W/MICROSCOPIC [URIN] Urgent 06/15/17 09:30 Sodium Chloride 0.9% [Normal Saline] 1,000 ml IV ASDIRECTED 06/15/17 10:24 Abdomen Ltd [US] Stat 06/15/17 10:30 Sodium Chloride 0.9% [Normal Saline] 1,000 ml IV ASDIRECTED 06/15/17 10:52 Abdomen Pelvis w Cont [CT] Stat 06/15/17 11:05 Sodium Chloride 0.9% [Saline Flush] 10 ml FLUSH ONETIME PRN 06/15/17 11:15 Iopamidol [Isovue-300 (61%)] 150 ml IV . DIRECTED - Assessment/Plan Last 24 Hours: My Active Orders 06/15/17 09:05 UA W/MICROSCOPIC [URIN] Urgent 06/15/17 09:30 Sodium Chloride 0.9% [Normal Saline] 1,000 ml IV ASDIRECTED 06/15/17 10:24 Abdomen Ltd [US] Stat 06/15/17 10:30 Sodium Chloride 0.9% [Normal Saline] 1,000 ml IV ASDIRECTED 06/15/17 10:52 Abdomen Pelvis w Cont [CT] Stat 06/15/17 11:05 Sodium Chloride 0.9% [Saline Flush] 10 ml FLUSH ONETIME PRN 06/15/17 11:15 Iopamidol [Isovue-300 (61%)] 150 ml IV . DIRECTED
[2017-06-15] MEDS ORDERED: Sodium Chloride 0.9% 1,000 ML IV SCH ×2 (09:30→10:30)
[2017-06-15] MEDS ORDERED: Pantoprazole 40 MG Vial IVPUSH ONE (10:22)
[2017-06-15] MEDS ORDERED: Sodium Chloride 0.9% 10 ML Syringe FLUSH PRN ×2 (11:05→12:14)
[2017-06-15] MEDS ORDERED: Iopamidol 612 MG/ML 150 ML Bottle IV SCH (11:15)
--- NOTE | 2017-06-15 11:51 | CT ---
Abdomen Pelvis w Cont CLINICAL HISTORY: Upper abdominal pain COMPARISON: 2017. TECHNIQUE: Axial tomographic images are obtained from the dome of the diaphragm to the pubic symphysi s without IV contrast enhancement. No oral contrast was used. Auto dosage reduction and iterative rec onstruction techniques employed. FINDINGS: The lung bases are clear. The liver is moderately enlarged. There is diffuse fatty infiltra tion. No mass or biliary dilatation is identified. The gallbladder has a normal appearance. The splee n is enlarged. The pancreas is slightly ill-defined at the pancreatic tail. There is some peripancrea tic fat stranding around the tail. There is a small amount of fluid near the lateral conal fascia. The adrenal glands appear normal bilaterally. The kidneys show no mass, stones or hydronephrosis. The ureters have normal course and caliber. The aorta is free of aneurysm. There is no suspicious retrop eritoneal adenopathy. There is some generalized bladder wall thickening, likely hypertrophy. There is prostatic enlargement. There is a moderate sized right inguinal hernia which contains peritoneal fat and small bowel and some fluid medially. IMPRESSION: Regional inflammation in the tail of the pancreas with the inflammation in the surroundin g fat consistent with pancreatitis Hepatosplenomegaly with moderate diffuse fatty infiltration of the liver Large right inguinal hernia containing small bowel. There is no evidence of incarceration Generalized bladder wall hypertrophy and enlarged prostate
--- NOTE | 2017-06-15 11:56 | US ---
Abdomen Ltd CLINICAL HISTORY: Upper abdominal pain COMPARISON: None. FINDINGS: The liver is moderately enlarged. It is free of mass or biliary dilatation. There is diffus e fatty infiltration. The gallbladder has a normal appearance. The common duct measures 5 mm. The hill creas is obscured. The right kidney has a normal contour. The inferior vena cava is unremarkable. IMPRESSION: Hepatomegaly with diffuse fatty infiltration No biliary dilatation identified Pancreas is obscured
[2017-06-15] MEDS ORDERED: Ondansetron 4 MG/2 ML SDV IV PRN (12:14)
[2017-06-15] MEDS ORDERED: Magnesium Hydroxide 400 MG/5 ML Susp 30 ML Cup PO PRN (12:14)
[2017-06-15] MEDS ORDERED: Polyethylene Glycol 3350 Powder 17 GM Packet PO PRN (12:14)
[2017-06-15] MEDS ORDERED: HYDROmorphone 0.5 MG/0.5 ML Syringe IVPUSH PRN (12:25)
[2017-06-15] MEDS ORDERED: Potassium Chloride 40 MEQ in Premix Bag 1 BAG IV ONE (12:25)
--- NOTE | 2017-06-15 12:34 | PCM.HP ---
H&P History of Present Illness - General Date of Service: 06/15/17 Admit Problem/Dx: Admission Diagnosis/Problem Admission Diagnosis/Problem Pancreatitis Source of Information: Patient, Old Records, Provider, RN Notes Reviewed History Limitations: Reports: No Limitations - History of Present Illness Initial Comments - Free Text/Narative: Mr. Sykes is a 47-year-old gentleman who is admitted through the emergency department with abdominal pain and associated nausea vomiting secondary to pancreatitis. He has a known history of alcohol use and abuse, has been seen previously in the emergency department for alcohol withdrawal seizure. Over the past 2 weeks has had difficulty with nausea vomiting, this would seem to occur intermittently, unrelated to eating and not associated with significant abdominal pain. Over the last 48 hours his developed increased upper abdominal pain that does not radiate. Pain is described as very intense ache, there've been no precipitating or relieving factors. On evaluation in the emergency department liver enzymes are found to be elevated as well as an elevation in lipase. CT scan of the abdomen shows evidence of inflammation around the pancreas. Upper Abdominal Pain Score (Numeric/FACES): 4 - Related Data Allergies/Adverse Reactions: Allergies Allergy/AdvReac Type Severity Reaction Status Date / Time No Known Allergies Allergy Verified 10/09/16 08:47 Home Medications: Home Meds Naproxen 500 mg PO ASDIRECTED PRN 11/06/15 [History] amLODIPine [Norvasc] 10 mg PO DAILY 11/06/15 [History] Hydrochlorothiazide 25 mg PO DAILY 04/15/16 [History] Sertraline [Zoloft] 25 mg PO DAILY 06/15/17 [History] Past Medical History HEENT History: Reports: Impaired Vision Other HEENT History: wears contacts occasionally Cardiovascular History: Reports: Hypertension Respiratory History: Reports: Sleep Apnea Other Respiratory History: c-pap Gastrointestinal History: Reports: None Genitourinary History: Reports: None Musculoskeletal History: Reports: Fracture, Other (See Below) Other Musculoskeletal History: history of broken foot many years ago cURRENT FX R GREAT TOE Neurological History: Reports: Concussion Psychiatric History: Reports: Anxiety Endocrine/Metabolic History: Reports: None Hematologic History: Reports: None Immunologic History: Reports: None Oncologic (Cancer) History: Reports: None Dermatologic History: Reports: Cellulitis Other Dermatologic History: "just getting over cellulitis to right leg" - Infectious Disease History Infectious Disease History: Reports: Chicken Pox, MRSA Other Infectious Disease History: MRSA RIGHT KNEE 4 YEARS AGO - Past Surgical History Head Surgeries/Procedures: Reports: None HEENT Surgical History: Reports: Tonsillectomy Cardiovascular Surgical History: Reports: None Respiratory Surgical History: Reports: None GI Surgical History: Reports: Hernia, Inguinal Neurological Surgical History: Reports: None Musculoskeletal Surgical History: Reports: None Social & Family History - Family History Family Medical History: Noncontributory - Tobacco Use Smoking Status *Q: Heavy Tobacco Smoker Years of Tobacco use: 2 Packs/Tins Daily: 0.5 Used Tobacco, but Quit: No Second Hand Smoke Exposure: No - Caffeine Use Caffeine Use: Reports: Soda - Alcohol Use Days Per Week of Alcohol Use: 7 Number of Drinks Per Day: 2 Total Drinks Per Week: 14 - Recreational Drug Use Recreational Drug Use: No H&P Review of Systems - Review of Systems: Review Of Systems: See Below General: Reports: Weakness, Decreased Appetite. Denies: Fever, Chills HEENT: Reports: No Symptoms Pulmonary: Reports: No Symptoms Cardiovascular: Reports: No Symptoms Gastrointestinal: Reports: Abdominal Pain, Decreased Appetite, Distension, Nausea, Vomiting. Denies: Constipation, Diarrhea, Difficulty Swallowing Genitourinary: Reports: No Symptoms Musculoskeletal: Reports: No Symptoms Skin: Reports: No Symptoms Psychiatric: Reports: No Symptoms Neurological: Reports: No Symptoms Hematologic/Lymphatic: Reports: No Symptoms Immunologic: Reports: No Symptoms Exam - Exam Exam: See Below - Vital Signs Vital Signs: Last Vital Signs Temp 98.6 F 06/15/17 09:14 Pulse 69 06/15/17 09:14 Resp 18 06/15/17 09:14 BP 137/82 06/15/17 09:14 Pulse Ox 98 06/15/17 09:14 Weight: 263 lb 10.766 oz - Exam Quality Assessment: DVT Prophylaxis General: Alert, Oriented, Cooperative, Moderate Distress HEENT: Conjunctiva Clear, Hearing Intact, Normal Nasal Septum, Posterior Pharynx Clear, Pupils Equal. No: Mucosa Moist & [place] Neck: Supple, Trachea Midline, +2 Carotid Pulse wo Bruit Lungs: Clear to Auscultation, Normal Respiratory Effort Cardiovascular: Regular Rate, Regular Rhythm, Normal S1, Normal S2 GI/Abdominal Exam: Soft, No Organomegaly, Tender. No: Guarding, Rigid, Rebound Back Exam: Normal Inspection, Full Range of Motion Extremities: Non-Tender, No Pedal Edema Skin: Warm, Dry, Intact Neurological: Cranial Nerves Intact, Strength Equal Bilateral, Normal Speech, Normal Tone, Sensation Intact. No: Focal Deficit Neuro Extensive - Mental Status: Alert, Oriented x3, Normal Mood/Affect, Normal Cognition, Memory Intact - Patient Data Lab Results Last 24 hrs: Laboratory Results - last 24 hr 06/15/17 06/15/17 06/15/17 Range/Units 09:05 09:16 09:16 WBC 6.4 (4.5-11.0) K/uL RBC 4.15 L (4.30-5.90) M/uL Hgb 14.3 D (12.0-15.0) g/dL Hct 39.2 L (40.0-54.0) % MCV 95 (80-98) fL MCH 35 H (27-31) pg MCHC 37 H (32-36) % Plt Count 99 L (150-400) K/uL Neut % (Auto) 74 H (36-66) % Lymph % (Auto) 15 L (24-44) % [place] % (Auto) 11 H (2-6) % Eos % (Auto) 0 L (2-4) % Baso % (Auto) 1 (0-1) % Sodium 131 L (140-148) mmol/L Potassium 3.5 L (3.6-5.2) mmol/L Chloride 93 L (100-108) mmol/L Carbon Dioxide 24 (21-32) mmol/L Anion Gap 17.5 H (5.0-14.0) mmol/L BUN 9 (7-18) mg/dL Creatinine 0.7 L (0.8-1.3) mg/dL Est Cr Clr Drug Dosing 144.73 mL/min Estimated GFR (MDRD) > 60 (>60) Glucose 181 H (74-106) mg/dL Calcium 6.7 L* D (8.5-10.1) mg/dL Total Bilirubin 1.7 H (0.2-1.0) mg/dL AST 227 H D (15-37) U/L ALT 63 (12-78) U/L Alkaline Phosphatase 208 H D (46-116) U/L Total Protein 6.1 L (6.4-8.2) g/dL Albumin 2.5 L (3.4-5.0) g/dL Globulin 3.6 H (2.3-3.5) g/dL Albumin/Globulin Ratio 0.7 L (1.2-2.2) Amylase 48 (25-115) U/L Lipase 667 H (73-393) U/L Urine Color Yellow Urine Appearance Clear Urine pH 7.0 (4.5-8.0) Ur Specific [place] 1.010 (1.008-1.030) Urine Protein Negative (NEGATIVE) mg/dL Urine Glucose (UA) Normal (NEGATIVE) mg/dL Urine Ketones Negative (NEGATIVE) mg/dL Urine Occult Blood Negative (NEGATIVE) Urine Nitrite Negative (NEGAITVE) Urine Bilirubin Negative (NEGATIVE) Urine Urobilinogen 1 (NORMAL) mg/dL Ur Leukocyte Esterase Negative (NEGATIVE) Urine RBC 0-5 (0-5) Urine WBC Not seen (0-5) Ur Epithelial Cells Not seen Amorphous Sediment Few Urine Bacteria Not seen Urine Mucus Not seen Result Diagrams: 06/15/17 09:16 06/15/17 09:16 *Q Meaningful Use (ADM) - VTE Risk Assess *Q Each Risk Factor Represents 1 Point: Age 41 - 59 years, Obesity ( BMI > 25 kg/m2 ) Total Score 1 Point Risk Factors: 2 Each Risk Factor Represents 2 Points: None Total Score 2 Point Risk Factors: 0 Each Risk Factor Represents 3 Points: None Total Score 3 Point Risk Factors: 0 Each Risk Factor Represents 5 Points: None Total Score 5 Point Risk Factors: 0 Venous Thromboembolism Risk Factor Score *Q: 2 Problem List Initiated/Reviewed/Updated: Yes Orders Last 24hrs: Active Orders 24 hr Category Date Time Status Patient Status Manage Transfer [TRANSFER] Routine ADT 06/15/17 12:31 Ordered Patient Status [ADT] Routine ADT 06/15/17 12:14 Active Ambulate [RC] QID Care 06/15/17 12:14 Active Height and Weight [RC] DAILY Care 06/15/17 12:14 Active Intake and Output [RC] QSHIFT Care 06/15/17 12:14 Active Notify Provider Consults [RC] ASDIRECTED Care 06/15/17 12:23 Active Notify Provider Vital Signs [RC] ASDIRECTED Care 06/15/17 12:14 Active Oxygen Therapy [RC] PRN Care 06/15/17 12:14 Active Peripheral IV Care [RC] . DIRECTED Care 06/15/17 12:23 Active Up ad So [RC] ASDIRECTED Care 06/15/17 12:14 Active Up to Chair [RC] QID Care 06/15/17 12:14 Active VTE/DVT Education [RC] Per Unit Routine Care 06/15/17 12:14 Active Vital Signs [RC] Q4H Care 06/15/17 12:14 Active Consult to Physician [CONS] Routine Cons 06/15/17 12:14 Ordered Nothing per Oral Now Diet [DIET] Diet 06/15/17 Lunch Active CBC WITH AUTO DIFF [HEME] AM Lab 06/16/17 05:11 Ordered COMPREHENSIVE METABOLIC PN,CMP [CHEM] AM Lab 06/16/17 05:11 Ordered LIPASE [CHEM] Timed Lab 06/16/17 05:00 Ordered LIPID PANEL [CHEM] AM Lab 06/16/17 05:11 Ordered MAGNESIUM [CHEM] AM Lab 06/16/17 05:11 Ordered UA W/MICROSCOPIC [URIN] Urgent Lab 06/15/17 09:05 Ordered Acetaminophen [Tylenol] Med 06/15/17 12:14 Ordered 650 mg PO Q4H PRN Docusate Sodium/Sennosides [Senna Plus] Med 06/15/17 12:14 Ordered 1 tab PO BID PRN Gabapentin [Neurontin] Med 06/15/17 12:30 Ordered 400 mg PO Q8H HYDROmorphone [Dilaudid] Med 06/15/17 12:25 Ordered 0.5 mg IVPUSH Q2H PRN Iopamidol [Isovue-300 (61%)] Med 06/15/17 11:15 Active 150 ml IV . DIRECTED Lactated Ringers [Ringers, Lactated] 1,000 ml Med 06/15/17 12:15 Ordered IV ASDIRECTED Magnesium Hydroxide [Milk of Magnesia] Med 06/15/17 12:14 Ordered 30 ml PO Q12H PRN Ondansetron [Zofran] Med 06/15/17 12:14 Ordered 4 mg IV Q4H PRN Pantoprazole [ProTONIX IV] Med 06/15/17 12:15 Ordered 40 mg IV Q12H Polyethylene Glycol 3350 [MiraLAX] Med 06/15/17 12:14 Ordered 17 gm PO DAILY PRN Potassium Chloride [KCL 40 MEQ in Water 100 ML] 40 meq Med 06/15/17 12:25 Ordered Premix Bag 1 bag IV ONETIME Sertraline [Zoloft] Med 06/16/17 09:00 Ordered 25 mg PO DAILY Sodium Chloride 0.9% [Normal Saline] 1,000 ml Med 06/15/17 09:30 Active IV ASDIRECTED Sodium Chloride 0.9% [Normal Saline] 1,000 ml Med 06/15/17 10:30 Active IV ASDIRECTED Sodium Chloride 0.9% [Saline Flush] Med 06/15/17 12:14 Ordered 10 ml FLUSH ASDIRECTED PRN Sodium Chloride 0.9% [Saline Flush] Med 06/15/17 11:05 Active 10 ml FLUSH ONETIME PRN amLODIPine [Norvasc] Med 06/16/17 09:00 Ordered 10 mg PO DAILY Peripheral IV Insertion Adult [OM.PC] Routine Oth 06/15/17 12:14 Ordered Sequential Compression Device [OM.PC] Per Unit Routine Oth 06/15/17 12:15 Ordered Resuscitation Status Routine Resus Stat 06/15/17 12:14 Ordered Medication Orders Acetaminophen (Tylenol) 650 mg PO Q4H PRN PRN Reason: Pain (Mild 1-3)/fever Amlodipine Besylate (Norvasc) 10 mg PO DAILY [facility] Gabapentin (Neurontin) 400 mg PO Q8H [facility] Hydromorphone HCl (Dilaudid) 0.5 mg IVPUSH Q2H PRN PRN Reason: Pain Sodium Chloride (Normal Saline) 1,000 mls @ 999 mls/hr IV ASDIRECTED [facility] Last Admin: 06/15/17 09:35 Dose: 999 mls/hr Sodium Chloride (Normal Saline) 1,000 mls @ 999 mls/hr IV ASDIRECTED [facility] Last Admin: 06/15/17 10:57 Dose: 999 mls/hr Lactated Ringer's (Ringers, Lactated) 1,000 mls @ 125 mls/hr IV ASDIRECTED [facility] Potassium Chloride 40 meq/ (Premix) 100 mls @ 25 mls/hr IV ONETIME ONE Stop: 06/15/17 16:24 Iopamidol (Isovue-300 (61%)) 150 ml IV . DIRECTED [facility] Last Admin: 06/15/17 11:16 Dose: 150 ml Magnesium Hydroxide (Milk Of Magnesia) 30 ml PO Q12H PRN PRN Reason: Constipation Ondansetron HCl (Zofran) 4 mg IV Q4H PRN PRN Reason: Nausea/Vomiting Pantoprazole Sodium (Protonix Iv) 40 mg IV Q12H [facility] Polyethylene Glycol (Miralax) 17 gm PO DAILY PRN PRN Reason: Constipation Senna/Docusate Sodium (Senna Plus) 1 tab PO BID PRN PRN Reason: Constipation Sertraline HCl (Zoloft) 25 mg PO DAILY [facility] Sodium Chloride (Saline Flush) 10 ml FLUSH ONETIME PRN PRN Reason: PER RADIOLOGY PROTOCOL Last Admin: 06/15/17 11:16 Dose: 10 ml Sodium Chloride (Saline Flush) 10 ml FLUSH ASDIRECTED PRN PRN Reason: Keep Vein Open Assessment/Plan Comment:: ASSESSMENT AND PLAN UPPER ABDOMINAL PAIN ASSOCIATED WITH NAUSEA AND VOMITING-likely that a significant degree of this is related to pancreatitis, may also have some underlying gastritis or duodenitis. -Pain medication as needed -Anti-emetic therapy as needed -IV fluids for hydration -Nothing by mouth -Consult Dr. Cuellar for EGD in a.m. -Protonix 40 mg IV every 12 hours -Repeat labs in a.m. PANCREATITIS-several potential causative factors identified by history. Alcohol use is the most likely contributing factor, he does have some elevation in liver enzymes which could indicate a common duct stone, serum on lab draw was noted to be very lipemic raising the possibility of significant hyperlipidemia, he is also been taking hydrochlorothiazide as a potential medication effect. -Hold hydrochlorothiazide -Fasting lipid profile in a.m. -Otherwise management as above MILD HYPOKALEMIA -IV potassium replacement -Recheck potassium level in a.m. HYPERTENSION -Hold hydrochlorothiazide -Opinion current therapy with amlodipine ALCOHOLISM-monitor closely for any evidence of alcohol withdrawal -Gabapentin 400 mg by mouth every 8 hours 4 days -Alcohol withdrawal protocol MAINTENANCE ISSUES -DVT prophylaxis; SCUDs -GI prophylaxis; Protonix as above -Valdes catheter; not indicated -Nutrition; nothing by mouth -Nicotine dependence; nicotinic patch CODE STATUS-FULL CODE ADMISSION STATUS-patient will be admitted to inpatient status, expect at least a 2 night hospital stay for evaluation and management of problems as outlined above. At the time of this admission I do not reasonably expected evaluation and management of this problem will require more than a 96 hour hospital stay. DISPOSITION-anticipate discharge to home after the hospital stay. PRIMARY CARE PROVIDER-
[2017-06-15] MEDS: Lactated Ringers 1,000 ML IV SCH (13:12)
[2017-06-15] MEDS: Potassium Chloride 20 MEQ, Lidocaine 1% 2 ML in Sodium Chloride 0.9% 100 ML IV SCH ×2 (13:13→17:44)
[2017-06-15] MEDS: Gabapentin 400 MG Cap PO SCH ×2 (13:19→20:41)
[2017-06-15] MEDS: Pantoprazole 40 MG Vial IV SCH (13:20)
[2017-06-15] MEDS ORDERED: LORazepam 1 MG Tab PO SCH (16:30)
[2017-06-15] MEDS: Nicotine 21 MG/24 Hr Patch TRDERM SCH (17:26)
[2017-06-15] MEDS: Folic Acid 1 MG Tab PO SCH (17:26)
[2017-06-15] MEDS: Thiamine 100 MG Tab PO SCH (17:26)
[2017-06-15] MEDS: Acetaminophen 325 MG Tab PO PRN (17:29)
[2017-06-16] MEDS: Lactated Ringers 1,000 ML IV SCH ×2 (00:53→08:18)
[2017-06-16] MEDS: Pantoprazole 40 MG Vial IV SCH (00:54)
[2017-06-16] MEDS: Gabapentin 400 MG Cap PO SCH (06:26)
[2017-06-16] MEDS ORDERED: Midazolam 1 MG/ML 2 ML SDV ONE (06:50)
[2017-06-16] MEDS ORDERED: Propofol 200 MG/20 ML SDV ONE ×2 (06:50→07:38)
[2017-06-16] MEDS ORDERED: fentaNYL 100 MCG/2 ML SDV ONE (06:50)
[2017-06-16] MEDS: Nicotine 21 MG/24 Hr Patch TRDERM SCH (08:29)
[2017-06-16] MEDS: Thiamine 100 MG Tab PO SCH (08:30)
[2017-06-16] MEDS: Folic Acid 1 MG Tab PO SCH (08:30)
[2017-06-16] MEDS ORDERED: Sertraline 25 MG Tab PO SCH (09:00)
[2017-06-16] MEDS ORDERED: amLODIPine 10 MG Tab PO SCH (09:00)
[2017-06-16] MEDS: Acetaminophen 325 MG Tab PO PRN (10:33)
[2017-06-16 11:14] VITALS: BP 145/78
--- NOTE | 2017-06-16 13:00 | PCM.DCSUM1 ---
Discharge Summary - Hospital Course Brief History: Mr. Sykes is a 47-year-old gentleman who is admitted through the emergency department with abdominal pain associated with nausea and vomiting. Findings in the emergency department were consistent with pancreatitis and it was suspected that he also had underlying gastritis. - Discharge Data Discharge Date: 06/16/17 Discharge Disposition: Home, Self-Care 01 Condition: Fair - Discharge Diagnosis/Problem(s) (1) Esophagitis SNOMED Code(s): 24201260 ICD Code: K20.9 - ESOPHAGITIS, UNSPECIFIED Status: Acute Current Visit: Yes (2) Gastritis SNOMED Code(s): 0321346 ICD Code: K29.70 - GASTRITIS, UNSPECIFIED, WITHOUT BLEEDING Status: Acute Current Visit: Yes (3) Pancreatitis SNOMED Code(s): 71081341 ICD Code: K85.90 - ACUTE PANCREATITIS WITHOUT NECROSIS OR INFECTION, UNSP Status: Acute Current Visit: Yes (4) Enlarged liver SNOMED Code(s): 41861125 ICD Code: R16.0 - HEPATOMEGALY, NOT ELSEWHERE CLASSIFIED Status: Acute Current Visit: Yes (5) Alcohol abuse SNOMED Code(s): 32569758 ICD Code: F10.10 - ALCOHOL ABUSE, UNCOMPLICATED Status: Chronic Current Visit: No (6) Obesity (BMI 30-39.9) SNOMED Code(s): 372364387, 125390909 ICD Code: E66.9 - OBESITY, UNSPECIFIED Status: Chronic Current Visit: No - Patient Summary/Data Hospital Course: Mr. Sykes is a 47-year-old gentleman who was admitted through the emergency department with abdominal pain and associated nausea vomiting secondary to pancreatitis. He has a known history of alcohol use and abuse, has been seen previously in the emergency department for alcohol withdrawal seizure. Over the past 2 weeks has had difficulty with nausea and vomiting, this would seem to occur intermittently, unrelated to eating and not associated with significant abdominal pain. Over the last 48 hours his developed increased upper abdominal pain that does not radiate. Pain is described as very intense ache, there've been no precipitating or relieving factors. On evaluation in the emergency department liver enzymes are found to be elevated as well as an elevation in lipase. CT scan of the abdomen shows evidence of inflammation around the pancreas. On admission he was kept nothing by mouth and given IV fluids for hydration. IV Protonix was prescribed every 12 hours and he was given pain medication as well as anti-emetic therapy as needed. The morning after admission he was seen and evaluated by Dr. Cuellar, EGD was performed which showed evidence of severe gastritis and esophagitis. After the EGD was performed he was given a soft diet which he tolerated without significant difficulty and reported that his pain had essentially resolved. Lipase level had improved from admission but had not yet quite normalized. Was felt likely that he has gastritis esophagitis and pancreatitis were secondary to his ongoing alcohol use. He is planning on stopping alcohol use and will be prescribed gabapentin after discharge for an additional 7 days to help mitigate withdrawal symptoms. He will be given information prior to discharge about community resources for alcohol treatment and AA groups. He will be on a soft low residue diet, and is instructed to stop all alcohol use and is much as possible limit nicotinic use. He also was instructed to stop use of nonsteroidal therapy because of the gastritis esophagitis and discontinue hydrochlorothiazide because of pancreatitis. On evaluation in the emergency department history and was noted to be lipemic, fasting lipid profile will be ordered prior to his follow-up appointment with primary care. Activity will be as tolerated and he will be scheduled for follow- up appointment with his primary care provider within one week. Follow-up appointment will also be scheduled with Dr. Triston Cuellar in one week. - Patient Instructions Diet: GI Soft/Low Residue/Low Fiber Activity: As Tolerated Other/Special Instructions: Appointment with Dr. Triston Cuellar at [facility] on Wednesday at 12:00. Please schedule follow-up appointment with primary care provider within one week. Fasting lipid profile should be obtained prior to that appointment. Take gabapentin as prescribed for management of alcohol withdrawal. Discontinue all alcohol use and limit nicotinic use. Avoid use of naproxen because of severe esophagitis and gastritis. Discontinue hydrochlorothiazide because of pancreatitis. - Discharge Plan Prescriptions/Med Rec: Gabapentin [Neurontin] 100 mg PO Q8H #54 capsule Pantoprazole Sodium [Protonix] 40 mg PO BID #30 tablet. Home Medications: Home Meds amLODIPine [Norvasc] 10 mg PO DAILY 11/06/15 [History] Sertraline [Zoloft] 25 mg PO DAILY 06/15/17 [History] Gabapentin [Neurontin] 100 mg PO Q8H #54 capsule 06/16/17 [Rx] Pantoprazole Sodium [Protonix] 40 mg PO BID #30 tablet. 06/16/17 [Rx] Referrals: PCP,None [Primary Care Provider] - - Discharge Summary/Plan Comment DC Time >30 min.: No - Patient Data Vitals - Most Recent: Last Vital Signs Temp 99.2 F 06/16/17 11:13 Pulse 88 06/16/17 11:13 Resp 20 06/16/17 11:13 BP 145/78 H 06/16/17 11:13 Pulse Ox 97 06/16/17 11:13 Weight - Most Recent: 263 lb 10.766 oz I&O - Last 24 hours: Intake & Output 06/15/17 06/16/17 06/16/17 22:59 06:59 14:59 Intake Total 1590 1166 Balance 1590 1166 Lab Results - Last 24 hrs: Laboratory Results - last 24 hr 06/16/17 06/16/17 06/16/17 Range/Units 05:30 05:30 05:55 WBC 3.7 L (4.5-11.0) K/uL RBC 3.73 L (4.30-5.90) M/uL Hgb 12.3 D (12.0-15.0) g/dL Hct 36.0 L (40.0-54.0) % MCV 97 (80-98) fL MCH 33 H (27-31) pg MCHC 34 (32-36) % Plt Count 85 L (150-400) K/uL Neut % (Auto) 58 (36-66) % Lymph % (Auto) 30 (24-44) % [place] % (Auto) 10 H (2-6) % Eos % (Auto) 1 L (2-4) % Baso % (Auto) 1 (0-1) % Sodium 138 L (140-148) mmol/L Potassium 4.0 (3.6-5.2) mmol/L Chloride 103 (100-108) mmol/L Carbon Dioxide 25 (21-32) mmol/L Anion Gap 14.0 (5.0-14.0) mmol/L BUN 6 L (7-18) mg/dL Creatinine 0.9 (0.8-1.3) mg/dL Est Cr Clr Drug Dosing 112.57 mL/min Estimated GFR (MDRD) > 60 (>60) Glucose 119 H (74-106) mg/dL Calcium 7.5 L (8.5-10.1) mg/dL Magnesium 1.9 (1.8-2.4) mg/dL Total Bilirubin 1.3 H (0.2-1.0) mg/dL AST 82 H (15-37) U/L ALT 52 (12-78) U/L Alkaline Phosphatase 166 H (46-116) U/L Total Protein 5.7 L (6.4-8.2) g/dL Albumin 2.3 L (3.4-5.0) g/dL Globulin 3.4 (2.3-3.5) g/dL Albumin/Globulin Ratio 0.7 L (1.2-2.2) Lipase 432 H (73-393) U/L Med Orders - Current: Current Medications Acetaminophen (Tylenol) 650 mg PO Q4H PRN PRN Reason: Pain (Mild 1-3)/fever Last Admin: 06/16/17 10:33 Dose: 650 mg Amlodipine Besylate (Norvasc) 10 mg PO DAILY [facility] Last Admin: 06/16/17 08:31 Dose: 10 mg Folic Acid (Folic Acid) 1 mg PO DAILY [facility] Last Admin: 06/16/17 08:30 Dose: 1 mg Gabapentin (Neurontin) 400 mg PO Q8H [facility] Last Admin: 06/16/17 06:26 Dose: Not Given Hydromorphone HCl (Dilaudid) 0.5 mg IVPUSH Q2H PRN PRN Reason: Pain Lactated Ringer's (Ringers, Lactated) 1,000 mls @ 125 mls/hr IV ASDIRECTED [facility] Last Admin: 06/16/17 08:18 Dose: 125 mls/hr Lorazepam (Ativan) 0 mg PO ASDIRECTED [facility]; Protocol Magnesium Hydroxide (Milk Of Magnesia) 30 ml PO Q12H PRN PRN Reason: Constipation Nicotine (Habitrol) 21 mg TRDERM DAILY [facility] Last Admin: 06/16/17 08:29 Dose: 21 mg Ondansetron HCl (Zofran) 4 mg IV Q4H PRN PRN Reason: Nausea/Vomiting Pantoprazole Sodium (Protonix Iv) 40 mg IV Q12H [facility] Last Admin: 06/16/17 00:54 Dose: 40 mg Polyethylene Glycol (Miralax) 17 gm PO DAILY PRN PRN Reason: Constipation Senna/Docusate Sodium (Senna Plus) 1 tab PO BID PRN PRN Reason: Constipation Sertraline HCl (Zoloft) 25 mg PO DAILY [facility] Last Admin: 06/16/17 08:30 Dose: 25 mg Thiamine HCl (Vitamin B-1) 100 mg PO DAILY [facility] Last Admin: 06/16/17 08:30 Dose: 100 mg Discontinued Medications Fentanyl (Sublimaze) Confirm Administered Dose 100 mcg .ROUTE .STK-MED ONE Stop: 06/16/17 06:51 Sodium Chloride (Normal Saline) 1,000 mls @ 999 mls/hr IV ASDIRECTED [facility] Last Admin: 06/15/17 09:35 Dose: 999 mls/hr Sodium Chloride (Normal Saline) 1,000 mls @ 999 mls/hr IV ASDIRECTED [facility] Last Admin: 06/15/17 10:57 Dose: 999 mls/hr Sodium Chloride (Normal Saline) 85 mls @ 3 mls/sec IV ONETIME ONE Stop: 06/15/17 11:06 Last Admin: 06/15/17 11:16 Dose: 3 mls/sec Potassium Chloride 20 meq/Lidocaine HCl 2 ml/ Sodium Chloride 112 mls @ 56 mls/ hr IV Q2H [facility] Stop: 06/15/17 16:58 Last Admin: 06/15/17 17:44 Dose: 56 mls/hr Iopamidol (Isovue-300 (61%)) 150 ml IV . DIRECTED [facility] Last Admin: 06/15/17 11:16 Dose: 150 ml Midazolam HCl (Versed 1 Mg/Ml) Confirm Administered Dose 2 mg .ROUTE .STK-MED ONE Stop: 06/16/17 06:51 Pantoprazole Sodium (Protonix Iv) 40 mg IVPUSH ONETIME ONE Stop: 06/15/17 10:23 Last Admin: 06/15/17 10:57 Dose: 40 mg Propofol (Diprivan 20 Ml) Confirm Administered Dose 200 mg .ROUTE .STK-MED ONE Stop: 06/16/17 06:51 Propofol (Diprivan 20 Ml) Confirm Administered Dose 200 mg .ROUTE .STK-MED ONE Stop: 06/16/17 07:39 Sodium Chloride (Saline Flush) 10 ml FLUSH ONETIME PRN PRN Reason: PER RADIOLOGY PROTOCOL Last Admin: 06/15/17 11:16 Dose: 10 ml Sodium Chloride (Saline Flush) 10 ml FLUSH ASDIRECTED PRN PRN Reason: Keep Vein Open - Exam General: Reports: Alert, Oriented, Cooperative, No Acute Distress Lungs: Reports: Clear to Auscultation, Normal Respiratory Effort Cardiovascular: Reports: Regular Rate, Regular Rhythm, No Murmurs GI/Abdominal Exam: Soft, Non-Tender, No Organomegaly, No Distention Extremities: Non-Tender, No Pedal Edema
--- NOTE | 2017-06-30 09:37 | OR ---
DATE OF PROCEDURE: 06/16/2017 PREOPERATIVE DIAGNOSIS: Gastric pain and heartburn with probable GI bleeding. POSTOPERATIVE DIAGNOSES: 1. Severe ulcerative esophagitis with small hiatal hernia. 2. Mild antral gastritis and duodenitis. OPERATIVE PROCEDURE: Esophagogastroduodenoscopy with: 1. Biopsies of esophagogastric junction and of esophagus up to mid esophagus for histologic evaluation. 2. Biopsies of antrum for CLOtest. ANESTHESIA: MAC. INDICATION FOR PROCEDURE: The patient presents with recent history of upper abdominal pain and heartburn along with some problem with GI bleeding. Plan is to proceed with upper GI endoscopy with biopsies as indicated. Potential risks including bleeding and perforation were discussed, and the patient wishes to proceed. DETAILS OF PROCEDURE: The patient was taken to the operating room and placed in a left lateral decubitus position. IV sedation was administered, after which the upper GI endoscope was passed orally through the length of the esophagus and into the stomach with retroflexion view of the fundus, thereafter through the pyloric channel and into the proximal duodenum. Findings included normal hypopharynx, larynx, and upper esophageal sphincter. As one entered the esophageal body roughly fci down its length, the marked inflammation was identified including bleeding ulcers extending roughly fci up the length of the esophagus and esophagogastric junction. As one progressed toward the distal esophagus, the ulceration became more intense and shows two areas with fibrinous exudate along with generalized marked inflammation. No stricture, plaque formation, or gross evidence of neoplasia was seen. Within the stomach, there was some mild redness within the antrum and proximal duodenum without ulcerations or ulcers in those locations. At that point, biopsies were obtained from the antrum and sent for CLOtest for H. pylori. Multiple biopsies were taken at the esophagogastric junction and as well up onto the lower and mid esophagus and sent for histologic evaluation. Minimal bleeding from the biopsy sites was seen and the procedure then concluded. The patient was taken to the recovery room in satisfactory condition. The patient will be maintained on a proton pump inhibitor regimen and follow up will be in 1 week. He should probably have an upper endoscopy at some point to confirm healing of the esophagitis. Triston Cuellar MD /[id number]
== END 2017-06-16 13:41 | disposition home or self-care (01) | DRG 380 ==
LOC: JP.ED 08:40 → JP.MS 12:14
PROVIDERS: ADMIT Hospitalist; ATTEND Hospitalist
PROC: 0DB68ZX Excision of Stomach, Via Natural or Artificial Opening Endoscopic, Diagnostic (ICD-10-PCS; principal; 2017-06-16)
PROC: 0DB48ZX Excision of Esophagogastric Junction, Via Natural or Artificial Opening Endoscopic, Diagnostic (ICD-10-PCS; 2017-06-16)
DX: K22.11 Ulcer of esophagus with bleeding (principal); K85.20 Alcohol induced acute pancreatitis without necrosis or infection; F10.188 Alcohol abuse with other alcohol-induced disorder; K29.20 Alcoholic gastritis without bleeding; E78.5 Hyperlipidemia, unspecified; I10 Essential (primary) hypertension; R16.0 Hepatomegaly, not elsewhere classified; F17.210 Nicotine dependence, cigarettes, uncomplicated; H54.7 Unspecified visual loss; G47.30 Sleep apnea, unspecified; Z99.89 Dependence on other enabling machines and devices; F41.9 Anxiety disorder, unspecified; Z86.14 Personal history of Methicillin resistant Staphylococcus aureus infection; E66.9 Obesity, unspecified; Z68.35 Body mass index [BMI] 35.0-35.9, adult; E87.6 Hypokalemia; K44.9 Diaphragmatic hernia without obstruction or gangrene
CPT/HCPCS: 36415; 74177; 74177-26; 76705; 76705-26; 80053; 81001; 82150; 83690; 83735; 85025; 87081; 88305; 88312; 96361; 96374; 99285-25; A9270-GY; C9113; J2250; J2704; J3010; J3480; J7030; J7040; J7050; J7120

== ENCOUNTER 2017-07-08 07:00 | Day surgery (SDC) | payer MEDICAID ==
[~2017-07-08 07:00] MED LIST changes: -Bupivacaine 0.5% 50 ML MDV ONE; +Bupivacaine 0.5%/EPINEPHrine 1:200,000 50 ML MDV ONE; -Ketorolac 60 MG/2 ML SDV ONE; -Lidocaine 1% with EPINEPHrine 1:100,000 50 ML MDV ONE; -Midazolam 1 MG/ML 2 ML SDV ONE; -Propofol 200 MG/20 ML SDV ONE; -Sodium Chloride 0.9% 1,000 ML IV SCH; -ceFAZolin 2 GM in Sodium Chloride 0.9% 50 ML IV ONE; -fentaNYL 100 MCG/2 ML SDV ONE
[2017-07-08] MEDS ORDERED: fentaNYL 250 MCG/5 ML SDV ONE (07:10)
[2017-07-08] MEDS ORDERED: Midazolam 1 MG/ML 2 ML SDV ONE (07:10)
[2017-07-08] MEDS ORDERED: Glycopyrrolate 0.2 MG/ML 5 ML MDV ONE (07:11)
[2017-07-08] MEDS ORDERED: Dexamethasone 4 MG/ML SDV ONE (07:11)
[2017-07-08] MEDS ORDERED: Rocuronium 50 MG/5 ML Vial ONE (07:11)
[2017-07-08] MEDS ORDERED: Propofol 200 MG/20 ML SDV ONE (07:11)
[2017-07-08] MEDS ORDERED: Succinylcholine 200 MG/10 ML MDV ONE (07:11)
[2017-07-08] MEDS ORDERED: Ondansetron 4 MG/2 ML SDV ONE (07:11)
[2017-07-08] MEDS ORDERED: Neostigmine Methylsulfate 1 MG/ML 5 ML Syringe ONE (07:11)
[2017-07-08] MEDS ORDERED: ceFAZolin 2 GM in Premix Bag 1 BAG IV ONE (07:30)
[2017-07-08] MEDS ORDERED: Dextrose 5%-Lactated Ringers 1,000 ML IV SCH (07:30)
[2017-07-08] MEDS ORDERED: Acetaminophen 500 MG Tab PO ONE (07:30)
[2017-07-08] MEDS ORDERED: fentaNYL 100 MCG/2 ML SDV ONE ×2 (09:22→09:44)
[2017-07-08] MEDS ORDERED: Linezolid 200 MG/100 ML Bag IRR ONE (10:01)
[2017-07-08] MEDS ORDERED: Ketorolac 60 MG/2 ML SDV ONE (10:18)
[2017-07-08 11:40] VITALS: BP 148/77
[2017-07-08] MEDS ORDERED: Acetaminophen/oxyCODONE 325-5 MG Tab PO ONE (11:45)
--- NOTE | 2017-07-19 09:23 | OR ---
DATE OF PROCEDURE: 07/08/2017 PREOPERATIVE DIAGNOSIS: Recurrent incarcerated right inguinal hernia. POSTOPERATIVE DIAGNOSES: 1. Recurrent incarcerated right inguinal hernia. 2. Prolapsed intraperitoneal mesh into lower inguinal floor and upper thigh. 3. Right ilioinguinal nerve at risk for entrapment by scar. OPERATIVE PROCEDURES: 1. Open repair of recurrent incarcerated right inguinal hernia with mesh plug technique, (41369). 2. Removal of intraperitoneal foreign body prolapsing into inguinal floor, (51712). 3. Division of right ilioinguinal nerve, (37260). ANESTHESIA: General. SENIOR DATA QUALITY ANALYST: Tamanna Veloz PA-C INDICATIONS FOR PROCEDURE: This is a 47-year-old presenting with a multiple recurrent right inguinal hernia, most recently repaired with mesh plug technique and what appears to have a prolapsed out of the intraperitoneal location down into the lower inguinal floor and uppermost thigh. It is associated with quite a bit in way of discomfort. At this time, the plan is to proceed with an open repair of this hernia with mesh plug technique. We will try to fix this plug at the Deven's ligament, i.e. the bony fixation which will hopefully be likely to hold up in terms of not prolapsing downward to a more adequate degree. We will also look to identify the right ilioinguinal nerve. If it is appears to be at risk for entrapment by scar, we would then divide that as well so as to prevent chronic postoperative neuropathic pain. Potential risks of procedure were reviewed with the patient including bleeding, infection, recurrence of the hernia once again and chronic pain after the procedure were all reviewed, and the patient wishes to proceed. DETAILS OF PROCEDURE: The patient was taken to the operating room and after general endotracheal anesthesia was induced. The areas were prepped and draped. The previous right inguinal incision was then reused and extended somewhat bilaterally. This was carried down through the skin and subcutaneous tissue. The prolapsed intraperitoneal mesh plug was then carefully dissected free from the soft tissues. One venous branch was divided and suture ligated, but otherwise the vasculature advancd to the right testicle appeared to be intact after completion of that dissection. Once that was removed, the patient as was noted to have some remaining incarcerated tissue with hernia. This appeared to most likely have some visceral within it, but was able to be gradually reduced without significant trauma. Following this then, an extra large plug was then placed into what was now a indirect defect. This was affixed to the Deven's ligament with titanium tacking screws and then to the underside of the conjoined tendon medially, superiorly, and inferiorly with horizontal mattress sutures of 0 Vicryl stitch. There did appear to be some tendency for some of the soft tissue to prolapse around the lower end of that plug despite the sutures. Given this, a second medium-sized plug was placed into the defect as well. This was affixed circumferentially with horizontal mattress sutures using 0 Vicryl stitch as well to help provide some additional occlusion of indirect hernia defect. Over this then the conjoined tendon was approximated to the shelving portion of the inguinal ligament with a running #1 Vicryl stitch, flat portion of the mesh plug system was placed underneath the cord structures and fixed there with some 3-0 Vicryl stitch. At this point, the ilioinguinal nerve was presumed with involved scar passing through the inguinal floor with the incision extended somewhat laterally, what appeared to be more likely 2 branches of the ilioinguinal nerve were identified and divided, sent for pathologic review. The external oblique aponeurosis was then approximated along with some attached subcutaneous tissue with 3-0 Vicryl stitch and the skin then with amy. Dressing was applied. The entire area was then injected with some 0.5% Marcaine and the patient was taken to the recovery room in satisfactory condition. Physician communication assistant, Tamanna Veloz PA-C, played an essential role in assisting in this case, helping to position the patient, retract structures as needed, as well as suturing and cutting sutures when indicated. Her presence improved patient's safety and decreased operative time. Triston Cuellar MD /[id number]
== END 2017-07-08 11:57 | disposition home or self-care (01) ==
LOC: JP.SDS 07:00
PROVIDERS: ATTEND Surgery
DX: K40.31 Unilateral inguinal hernia, with obstruction, without gangrene, recurrent (principal); T85.898A Other specified complication of other internal prosthetic devices, implants and grafts, initial encounter; K21.9 Gastro-esophageal reflux disease without esophagitis; F41.9 Anxiety disorder, unspecified; I10 Essential (primary) hypertension; E66.9 Obesity, unspecified; F17.210 Nicotine dependence, cigarettes, uncomplicated; K85.90 Acute pancreatitis without necrosis or infection, unspecified; E78.1 Pure hyperglyceridemia; F10.10 Alcohol abuse, uncomplicated; Z79.899 Other long term (current) drug therapy; Z68.39 Body mass index [BMI] 39.0-39.9, adult
CPT/HCPCS: 49402; 49521; 64772; 88300; 88302; A9270; C1781; J0330; J0690; J1100; J1885; J2020; J2405; J2704; J2710; J3010; J7042; J2250

== ENCOUNTER 2017-07-16 13:03 | Emergency (ER) | payer MEDICAID ==
[2017-07-16 13:22] VITALS: BP 145/86
--- NOTE | 2017-07-16 13:25 | EDM.PDOC ---
ED HPI GENERAL MEDICAL PROBLEM - General Chief Complaint: Wound Recheck Stated Complaint: INFECTION IN SURGERY SITE Time Seen by Provider: 07/16/17 13:21 Source of Information: Reports: Patient, RN History Limitations: Reports: No Limitations - History of Present Illness INITIAL COMMENTS - FREE TEXT/NARRATIVE: 47 yo male recently had R inguinal hernia repair by Dr. Tiago Cuellar here at [facility]. He next has a follow up appt is next week. Now has redness and swelling and some drainage from the area. Has felt chilled, but no def'n fever. Onset: Gradual Onset Date: 07/15/17 Duration: Hour(s):, Getting Worse Location: Reports: Pelvis (R groin) Quality: Reports: Pressure Severity: Moderate Improves with: Reports: None Worsens with: Reports: Other (time) Context: Reports: Other (Recent hernia surgery) Associated Symptoms: Reports: Fever/Chills (chills last night), Rash (local redness.). Denies: Nausea/Vomiting Treatments POLICYHOLDER INFORMATION CLERK: Reports: Other (see below) (none) Right Pelvic Pain Score (Numeric/FACES): 4 - Related Data Allergies Allergy/AdvReac Type Severity Reaction Status Date / Time No Known Allergies Allergy Verified 07/16/17 13:22 Home Meds: Home Meds amLODIPine [Norvasc] 10 mg PO DAILY 11/06/15 [History] Sertraline [Zoloft] 25 mg PO DAILY 06/15/17 [History] Pantoprazole Sodium [Protonix] 40 mg PO BID #30 tablet. 06/16/17 [Rx] Fenofibrate 160 mg PO DAILY 07/06/17 [History] Hydrochlorothiazide 25 mg PO DAILY 07/06/17 [History] Linezolid [Zyvox] 600 mg PO Q12H #19 tab 07/16/17 [Rx] Past Medical History HEENT History: Reports: Impaired Vision Other HEENT History: wears contacts occasionally Cardiovascular History: Reports: Hypertension Respiratory History: Reports: Sleep Apnea Other Respiratory History: c-pap Gastrointestinal History: Reports: None, Pancreatitis, PUD Genitourinary History: Reports: None Musculoskeletal History: Reports: Fracture, Other (See Below) Other Musculoskeletal History: history of broken foot many years ago cURRENT FX R GREAT TOE Neurological History: Reports: Concussion Psychiatric History: Reports: Anxiety Endocrine/Metabolic History: Reports: Obesity/BMI 30+ Hematologic History: Reports: None Immunologic History: Reports: None Oncologic (Cancer) History: Reports: None Dermatologic History: Reports: Cellulitis Other Dermatologic History: "just getting over cellulitis to right leg" - Infectious Disease History Infectious Disease History: Reports: Chicken Pox, MRSA Other Infectious Disease History: MRSA RIGHT KNEE 4 YEARS AGO - Past Surgical History Head Surgeries/Procedures: Reports: None HEENT Surgical History: Reports: Tonsillectomy Cardiovascular Surgical History: Reports: None Respiratory Surgical History: Reports: None GI Surgical History: Reports: EGD, Hernia, Inguinal, Hernia Repair/Other Endocrine Surgical History: Reports: None Neurological Surgical History: Reports: None Musculoskeletal Surgical History: Reports: None Dermatological Surgical History: Reports: None Social & Family History - Family History Family Medical History: Noncontributory Oncologic: Reports: Lymphoma - Caffeine Use Caffeine Use: Reports: None ED ROS GENERAL - Review of Systems Review Of Systems: See Below Constitutional: Reports: Chills. Denies: Fever, Diaphoresis HEENT: Reports: No Symptoms Respiratory: Reports: No Symptoms Cardiovascular: Reports: No Symptoms GI/Abdominal: Reports: No Symptoms : Reports: No Symptoms Musculoskeletal: Reports: No Symptoms Skin: Reports: Erythema, Wound (surgical) Neurological: Reports: No Symptoms ED EXAM, SKIN/RASH Exam: See Below Exam Limited By: No Limitations General Appearance: Alert, WD/WN, No Apparent Distress Eye Exam: Bilateral Eye: Normal Inspection Ears: Normal External Exam, Normal Canal, Hearing Grossly Normal Nose: Normal Inspection, Normal Mucosa Throat/Mouth: Normal Inspection, Normal Lips, Normal Oropharynx, Normal Voice, No Airway Compromise Head: Atraumatic, Normocephalic Neck: Normal Inspection Respiratory/Chest: No Respiratory Distress, No Accessory Muscle Use Cardiovascular: Regular Rate, Rhythm GI/Abdominal: Normal Bowel Sounds, Soft, Non-Tender, No Distention Extremities: Normal Inspection, Normal Range of Motion, Non-Tender, No Pedal Edema Neurological: Alert, Oriented, CN II-XII Intact, Normal Cognition, No Motor/ Sensory Deficits Psychiatric: Normal Affect, Normal Mood Skin: Warm, Dry, No Rash, Erythema (erythema and increased warmth around surgical wound site with local swelling. No visible drainage at this time. ) Course - Vital Signs Text/Narrative:: 4 ml of bloody drainage aspirated from the site after betadine prep and lidocaine with epi. Sent for culture and gram stain. Discussed with Dr. Cuellar @ [facility]. Zyvox 600 mg IV given Last Recorded V/S: Last Vital Signs Temp 37.6 C 07/16/17 13:17 Pulse 90 07/16/17 13:17 Resp 16 07/16/17 13:17 BP 145/86 H 07/16/17 13:17 Pulse Ox 99 07/16/17 13:17 - Orders/Labs/Meds Orders: Active Orders 24 hr Category Date Time Status CULTURE WOUND + SMEAR [RM] Stat Lab 07/16/17 13:43 Ordered Linezolid [Zyvox] 600 mg Med 07/16/17 14:15 Active Premix Bag 1 bag IV ONETIME Medication Orders Linezolid 600 mg/ Premix 300 mls @ 300 mls/hr IV ONETIME ONE Stop: 07/16/17 15:14 Last Admin: 07/16/17 14:21 Dose: 300 mls/hr Meds: Medications Generic Name Dose Route Start Last Admin Trade Name Jo PRN Reason Stop Dose Admin Linezolid 600 mg/ Premix 300 mls @ 300 mls/hr 07/16/17 14:15 07/16/17 14:21 IV 07/16/17 15:14 300 mls/hr ONETIME ONE Administration Departure - Departure Time of Disposition: 15:30 Disposition: Home, Self-Care 01 Condition: Fair Clinical Impression: Postoperative wound cellulitis Qualifiers: Encounter type: initial encounter Qualified Code(s): T81.4XXA - Infection following a procedure, initial encounter - Discharge Information Prescriptions: Linezolid [Zyvox] 600 mg PO Q12H #19 tab Referrals: Triston Cuellar MD [Primary Care Provider] - Forms: ED Department Discharge Additional Instructions: Take Zyvox 600 mg every 12 hrs until gone. Return on Wednesday to see Dr. Cuellar in his office. You may apply warm compresses to area several times a day. Return to the ER if worse over the weekend. - My Orders Last 24 Hours: My Active Orders 07/16/17 13:43 CULTURE WOUND + SMEAR [RM] Stat 07/16/17 14:15 Linezolid [Zyvox] 600 mg Premix Bag 1 bag IV ONETIME - Assessment/Plan Last 24 Hours: My Active Orders 07/16/17 13:43 CULTURE WOUND + SMEAR [RM] Stat 07/16/17 14:15 Linezolid [Zyvox] 600 mg Premix Bag 1 bag IV ONETIME
[2017-07-16] MEDS ORDERED: Linezolid 600 MG in Premix Bag 1 BAG IV ONE ×2 (14:03→14:15)
== END 2017-07-16 15:40 | disposition home or self-care (01) ==
LOC: JP.ED 13:03
DX: T81.4XXA Infection following a procedure, initial encounter (principal); L03.90 Cellulitis, unspecified; I10 Essential (primary) hypertension; F41.9 Anxiety disorder, unspecified; Z79.899 Other long term (current) drug therapy
CPT/HCPCS: 87070; 87077; 87186; 87205; 96365; 99283; J2020

== ENCOUNTER 2019-05-01 15:34 | Emergency (ER) | payer MEDICAID, OTHER ==
[2019-05-01 16:01] VITALS: BP 132/68; PULSE 85
--- NOTE | 2019-05-01 16:15 | EDM.PDOC ---
ED HPI GENERAL MEDICAL PROBLEM - General Chief Complaint: Lower Extremity Injury/Pain Stated Complaint: LEFT CALF PAIN Time Seen by Provider: 05/01/19 16:13 Source of Information: Reports: Patient History Limitations: Reports: No Limitations - History of Present Illness INITIAL COMMENTS - FREE TEXT/NARRATIVE: pt arrived stating that he did have a hip replace, Apr 14. He was doing well. On thur of last week he noted increased pain in the calf of the leg. The pain appeared to be more on the lateral adpect of the calf on the left leg. Onset: Gradual, Other (last 2-3 days. ) Duration: Hour(s): Location: Reports: Lower Extremity, Left Associated Symptoms: Reports: No Other Symptoms Left Lower Leg Pain Score (Numeric/FACES): 4 - Related Data Allergies Allergy/AdvReac Type Severity Reaction Status Date / Time No Known Allergies Allergy Verified 05/01/19 15:50 Home Meds: Home Meds amLODIPine [Norvasc] 10 mg PO DAILY 11/06/15 [History] Sertraline [Zoloft] 25 mg PO DAILY 06/15/17 [History] Pantoprazole Sodium [Protonix] 40 mg PO BID #30 tablet. 06/16/17 [Rx] Fenofibrate 160 mg PO DAILY 07/06/17 [History] Aspirin 325 mg PO BID 05/01/19 [History] Lisinopril [Zestril] 20 mg PO DAILY 05/01/19 [History] oxyCODONE 1 tab PO Q4H PRN 05/01/19 [History] Past Medical History HEENT History: Reports: Impaired Vision Other HEENT History: wears contacts occasionally Cardiovascular History: Reports: Hypertension Respiratory History: Reports: Sleep Apnea Other Respiratory History: c-pap Gastrointestinal History: Reports: None, Pancreatitis, PUD Genitourinary History: Reports: None Musculoskeletal History: Reports: Fracture, Other (See Below) Other Musculoskeletal History: history of broken foot many years ago cURRENT FX R GREAT TOE Neurological History: Reports: Concussion Psychiatric History: Reports: Anxiety Endocrine/Metabolic History: Reports: Obesity/BMI 30+ Hematologic History: Reports: None Immunologic History: Reports: None Oncologic (Cancer) History: Reports: None Dermatologic History: Reports: Cellulitis Other Dermatologic History: "just getting over cellulitis to right leg" - Infectious Disease History Infectious Disease History: Reports: Chicken Pox, MRSA Other Infectious Disease History: MRSA RIGHT KNEE 4 YEARS AGO - Past Surgical History HEENT Surgical History: Reports: Tonsillectomy Cardiovascular Surgical History: Reports: None Respiratory Surgical History: Reports: None GI Surgical History: Reports: EGD, Hernia, Inguinal, Hernia Repair/Other Endocrine Surgical History: Reports: None Neurological Surgical History: Reports: None Musculoskeletal Surgical History: Reports: None, Hip Replacement Dermatological Surgical History: Reports: None Social & Family History - Family History Family Medical History: Noncontributory Oncologic: Reports: Lymphoma - Tobacco Use Smoking Status *Q: Current Every Day Smoker Years of Tobacco use: 6 Packs/Tins Daily: 1 Used Tobacco, but Quit: No Second Hand Smoke Exposure: Yes - Caffeine Use Caffeine Use: Reports: Coffee, Soda - Alcohol Use Days Per Week of Alcohol Use: 7 Number of Drinks Per Day: 8 Total Drinks Per Week: 56 - Recreational Drug Use Recreational Drug Use: No Review of Systems - Review of Systems Review Of Systems: See Below Eyes: Reports: No Symptoms Ears: Reports: No Symptoms Nose: Reports: No Symptoms Mouth/Throat: Reports: No Symptoms Respiratory: Reports: No Symptoms Cardiovascular: Reports: No Symptoms Genitourinary: Reports: No Symptoms Musculoskeletal: Reports: Other (pain on the lateral aspect of the left leg. ) Skin: Reports: No Symptoms Neurological: Reports: No Symptoms ED EXAM, GENERAL - Physical Exam Exam: See Below Free Text/Narrative:: pt arrived with a history of pain on the lateral aspect of his left calf. He had a hip replacement on apr 14. He has been doing well with that and is walking good. Exam Limited By: No Limitations General Appearance: Alert, Anxious, Mild Distress Ears: Normal TMs Nose: Normal Inspection Throat/Mouth: Normal Inspection Head: Atraumatic Neck: Normal Inspection Respiratory/Chest: No Respiratory Distress Cardiovascular: Regular Rate, Rhythm GI/Abdominal: Soft, Non-Tender (Male) Exam: Deferred Rectal (Males) Exam: Deferred Back Exam: Normal Inspection Extremities: Other (pt does not have a signifant increase in swelling in the calf. He has some tenderness on the lateral aspect of the calf.) Neurological: Alert, Oriented Course - Vital Signs Last Recorded V/S: Last Vital Signs Temp 36.6 C 05/01/19 15:59 Pulse 85 05/01/19 15:59 Resp 16 05/01/19 15:59 BP 132/68 05/01/19 15:59 Pulse Ox 97 05/01/19 15:59 - Orders/Labs/Meds Orders: Active Orders 24 hr Category Date Time Status Tibia Fibula Lt [CR] Stat Exams 05/01/19 16:46 Taken VL Duplex Lwr Ext Veins Ltd Lt [US] Stat Exams 05/01/19 16:12 Taken Labs: Laboratory Tests 05/01/19 05/01/19 Range/Units 16:24 16:24 WBC 7.5 (4.5-11.0) K/uL RBC 3.52 L (4.30-5.90) M/uL Hgb 11.7 L (12.0-15.0) g/dL Hct 34.6 L (40.0-54.0) % MCV 98 (80-98) fL MCH 33 H (27-31) pg MCHC 34 (32-36) % Plt Count 510 H (150-400) K/uL Neut % (Auto) 63 (36-66) % Lymph % (Auto) 23 L (24-44) % [place] % (Auto) 10 H (2-6) % Eos % (Auto) 3 (2-4) % Baso % (Auto) 1 (0-1) % Sodium 133 L (140-148) mmol/L Potassium 4.2 (3.6-5.2) mmol/L Chloride 100 (100-108) mmol/L Carbon Dioxide 22 (21-32) mmol/L Anion Gap 15.2 H (5.0-14.0) mmol/L BUN 9 (7-18) mg/dL Creatinine 0.7 L (0.8-1.3) mg/dL Est Cr Clr Drug Dosing 141.65 mL/min Estimated GFR (MDRD) > 60 (>60) Glucose 114 H (74-106) mg/dL Calcium 8.9 D (8.5-10.1) mg/dL Total Bilirubin 0.3 D (0.2-1.0) mg/dL AST 21 (15-37) U/L ALT 32 (12-78) U/L Alkaline Phosphatase 79 (46-116) U/L C-Reactive Protein 0.29 (0.0-0.3) mg/dL Total Protein 6.8 (6.4-8.2) g/dL Albumin 3.6 (3.4-5.0) g/dL Globulin 3.2 (2.3-3.5) g/dL Albumin/Globulin Ratio 1.1 L (1.2-2.2) - Re-Assessments/Exams Free Text/Narrative Re-Assessment/Exam: 05/02/19 07:36 pt had a US of tghe leg which was neg for clot. He had a xray of the knee and tib fib area which was neg. 05/02/19 07:37 He had a normal wbc and and a normal crp. Departure - Departure Time of Disposition: 18:50 Disposition: Home, Self-Care 01 Condition: Fair Clinical Impression: Strain of left calf muscle - Discharge Information Instructions: Muscle Strain, [id number] Referrals: Otto Cole DIVISION TRAFFIC SUPERINTENDENT [Primary Care Provider] - Forms: ED Department Discharge Care Plan Goals: moist warm packs to the left calf, tylenol for discofort, massage to relax muscles. Sepsis Event Note - Evaluation Sepsis Screening Result: No Definite Risk - Focused Exam Date Exam was Performed: 05/02/19 Time Exam was Performed: 07:32 - My Orders Last 24 Hours: My Active Orders 05/01/19 16:12 VL Duplex Lwr Ext Veins Ltd Lt [US] Stat 05/01/19 16:46 Tibia Fibula Lt [CR] Stat - Assessment/Plan Last 24 Hours: My Active Orders 05/01/19 16:12 VL Duplex Lwr Ext Veins Ltd Lt [US] Stat 05/01/19 16:46 Tibia Fibula Lt [CR] Stat
--- NOTE | 2019-05-02 09:03 | US ---
VL Duplex Lwr Ext Veins Ltd Lt INDICATION: pain on the outside of the leg/ FINDINGS: Ultrasound examination of the lower extremity using Doppler and compressive technique demonstrates that the common femoral, femoral, and popliteal veins are patent, and negative for thrombus. The calf veins were segmentally visualized and are negative where seen. IMPRESSION: Negative for deep venous thrombosis.
--- NOTE | 2019-05-02 09:37 | CR ---
Tibia Fibula Lt CLINICAL HISTORY: Pain laterally FINDINGS: Two views show no evidence of fracture or bone destruction. There is some generalized soft tissue prominence which appears to be edema. Ankle mortise is anatomic. Impression: No osseous lesion Generalized soft tissue swelling with subcutaneous edema
== END 2019-05-01 18:57 | disposition home or self-care (01) ==
LOC: JP.ED 15:34
DX: S86.912A Strain of unspecified muscle(s) and tendon(s) at lower leg level, left leg, initial encounter (principal); I10 Essential (primary) hypertension; F41.9 Anxiety disorder, unspecified; E66.9 Obesity, unspecified; Z68.41 Body mass index [BMI] 40.0-44.9, adult; F17.210 Nicotine dependence, cigarettes, uncomplicated; Z96.649 Presence of unspecified artificial hip joint; Z79.82 Long term (current) use of aspirin; Z79.899 Other long term (current) drug therapy; X58.XXXA Exposure to other specified factors, initial encounter
CPT/HCPCS: 36415; 73590-26-LT; 73590-LT; 80053; 85025; 86140; 93971-26-LT; 93971-LT; 99284-25

== ENCOUNTER 2020-01-09 15:08 | Emergency (ER) | payer MEDICAID ==
[2020-01-09] MEDS ORDERED: HYDROmorphone 1 MG/ML Syringe IVPUSH ONE (15:13)
[2020-01-09] MEDS ORDERED: Sodium Chloride 0.9% 10 ML Syringe FLUSH PRN (15:13)
--- NOTE | 2020-01-09 15:25 | EDM.PDOC ---
ED HPI GENERAL MEDICAL PROBLEM - General Stated Complaint: MEDICAL VIA [facility]TH Time Seen by Provider: 01/09/20 15:13 Source of Information: Reports: Patient, RN Notes Reviewed History Limitations: Reports: No Limitations - History of Present Illness INITIAL COMMENTS - FREE TEXT/NARRATIVE: 49-year-old gentleman presents emergency department today with dislocation to his left hip he injured himself when he was working on a semitire trying to change it he recently had hip replacements about 6 months prior for severe degenerative joint disease Left Hip Pain Score (Numeric/FACES): 10 - Related Data Allergies Allergy/AdvReac Type Severity Reaction Status Date / Time No Known Allergies Allergy Verified 01/09/20 15:34 Home Meds: Home Meds amLODIPine [Norvasc] 10 mg PO DAILY 11/06/15 [History] Sertraline [Zoloft] 25 mg PO DAILY 06/15/17 [History] Pantoprazole Sodium [Protonix] 40 mg PO BID #30 tablet. 06/16/17 [Rx] Fenofibrate 160 mg PO DAILY 07/06/17 [History] Aspirin 325 mg PO BID 05/01/19 [History] lisinopriL [Zestril] 20 mg PO DAILY 05/01/19 [History] Past Medical History HEENT History: Reports: Impaired Vision Other HEENT History: wears contacts occasionally Cardiovascular History: Reports: Hypertension Respiratory History: Reports: Sleep Apnea Other Respiratory History: c-pap Gastrointestinal History: Reports: Pancreatitis, PUD Musculoskeletal History: Reports: Fracture, Other (See Below) Other Musculoskeletal History: history of broken foot many years ago cURRENT FX R GREAT TOE Neurological History: Reports: Concussion Psychiatric History: Reports: Anxiety Endocrine/Metabolic History: Reports: Obesity/BMI 30+ Hematologic History: Reports: None Immunologic History: Reports: None Oncologic (Cancer) History: Reports: None Dermatologic History: Reports: Cellulitis Other Dermatologic History: "just getting over cellulitis to right leg" - Infectious Disease History Infectious Disease History: Reports: Chicken Pox, MRSA Other Infectious Disease History: MRSA RIGHT KNEE 4 YEARS AGO - Past Surgical History HEENT Surgical History: Reports: Tonsillectomy Cardiovascular Surgical History: Reports: None Respiratory Surgical History: Reports: None GI Surgical History: Reports: EGD, Hernia, Inguinal, Hernia Repair/Other Endocrine Surgical History: Reports: None Neurological Surgical History: Reports: None Musculoskeletal Surgical History: Reports: None, Hip Replacement Dermatological Surgical History: Reports: None Social & Family History - Family History Family Medical History: No Pertinent Family History Oncologic: Reports: Lymphoma - Caffeine Use Caffeine Use: Reports: Coffee, Soda Review of Systems - Review of Systems Review Of Systems: See Below Musculoskeletal: Reports: Joint Pain (Left hip pain) ED EXAM, GENERAL - Physical Exam Exam: See Below Free Text/Narrative:: Will not tolerate an exam secondary to pain Post reduction exam pedal pulses +2 he is able to move with flexion extension pain-free Exam Limited By: No Limitations General Appearance: Alert, Severe Distress Respiratory/Chest: No Respiratory Distress ED TRAUMA EXTREMITY PROCEDURES - Joint Reduction Left Hip Sedation: Conscious Sedation Pre-Procedure NV Status: Normal Post-Procedure NV Status: Normal Technique: Traction/Counter Traction (Captain Robbins's technique) Number of Attempts: 1 Post-Reduction Imaging: Completely Reduced, No Fracture Seen Joint Reduction Complications: No Course - Vital Signs Last Recorded V/S: Last Vital Signs Temp 95.8 F L 01/09/20 15:29 Pulse 77 01/09/20 16:51 Resp 20 01/09/20 16:51 BP 132/83 01/09/20 16:51 Pulse Ox 97 01/09/20 16:51 - Orders/Labs/Meds Orders: Active Orders 24 hr Category Date Time Status Peripheral IV Care [RC] . DIRECTED Care 01/09/20 15:14 Active Hip Min 1V Lt [CR] Stat Exams 01/09/20 16:18 Taken Sodium Chloride 0.9% [Normal Saline] 1,000 ml Med 01/09/20 15:45 Active IV ASDIRECTED Sodium Chloride 0.9% [Saline Flush] Med 01/09/20 15:13 Active 10 ml FLUSH ASDIRECTED PRN Peripheral IV Insertion Adult [OM.PC] Urgent Oth 01/09/20 15:13 Ordered Medication Orders Sodium Chloride (Normal Saline) 1,000 mls @ 25 mls/hr IV ASDIRECTED CHRISTELLE Last Admin: 01/09/20 15:51 Dose: 25 mls/hr Documented by: PREILOR Sodium Chloride (Saline Flush) 10 ml FLUSH ASDIRECTED PRN PRN Reason: Keep Vein Open Meds: Medications Generic Name Dose Route Start Last Admin Trade Name Freq PRN Reason Stop Dose Admin Sodium Chloride 1,000 mls @ 25 mls/hr 01/09/20 15:45 01/09/20 15:51 Normal Saline IV 25 mls/hr ASDIRECTED CHRISTELLE Administration Sodium Chloride 10 ml 01/09/20 15:13 Saline Flush FLUSH ASDIRECTED PRN Keep Vein Open Discontinued Medications Generic Name Dose Route Start Last Admin Trade Name Juddq PRN Reason Stop Dose Admin Hydromorphone HCl 1 mg 01/09/20 15:13 01/09/20 15:27 Dilaudid IVPUSH 01/09/20 15:14 1 mg ONETIME ONE Administration Propofol Confirm 01/09/20 16:25 Diprivan 20 Ml Administered 01/09/20 16:26 Dose 400 mg .ROUTE .STK-MED ONE Departure - Departure Time of Disposition: 17:13 Disposition: Home, Self-Care 01 Condition: Good Clinical Impression: Hip dislocation, left Qualifiers: Encounter type: initial encounter Qualified Code(s): S73.005A - Unspecified dislocation of left hip, initial encounter - Discharge Information Instructions: Hip Dislocation, [id number] Referrals: Otto Cole [employer] [Primary Care Provider] - Additional Instructions: Recommend follow-up with orthopedics for reevaluation, Tylenol Motrin as needed for pain control Sepsis Event Note (ED) - Focused Exam Vital Signs: Vital Signs Temp Pulse Resp BP Pulse Ox 01/09/20 16:51 77 20 132/83 97 01/09/20 15:55 70 24 H 125/68 99 01/09/20 15:29 95.8 F L 64 28 H 104/44 L 100 01/09/20 15:25 66 20 118/57 L 100 01/09/20 15:23 95.8 F L 64 28 H 104/44 L 100 - My Orders Last 24 Hours: My Active Orders 01/09/20 15:13 Sodium Chloride 0.9% [Saline Flush] 10 ml FLUSH ASDIRECTED PRN Peripheral IV Insertion Adult [OM.PC] Urgent 01/09/20 15:14 Peripheral IV Care [RC] . DIRECTED 01/09/20 15:45 Sodium Chloride 0.9% [Normal Saline] 1,000 ml IV ASDIRECTED 01/09/20 16:18 Hip Min 1V Lt [CR] Stat - Assessment/Plan Last 24 Hours: My Active Orders 01/09/20 15:13 Sodium Chloride 0.9% [Saline Flush] 10 ml FLUSH ASDIRECTED PRN Peripheral IV Insertion Adult [OM.PC] Urgent 01/09/20 15:14 Peripheral IV Care [RC] . DIRECTED 01/09/20 15:45 Sodium Chloride 0.9% [Normal Saline] 1,000 ml IV ASDIRECTED 01/09/20 16:18 Hip Min 1V Lt [CR] Stat Plan: Assessment Acuity = acute Site and laterality = left hip dislocation status post reduction Etiology = lifting a semitire awkward positioning while squatting Manifestations = none Location of injury = Home Lab values = x-rays described the reduction and dislocation of the left hip Plan Use ibuprofen as needed for pain control recommend follow-up with orthopedics in the next 3 to 5 days for reevaluation This note was dictated using [employer] voice recognition software please call with any questions on syntax or grammar.
--- NOTE | 2020-01-09 15:42 | CR ---
Hip Min 1V Lt CLINICAL HISTORY: Pain, dislocation FINDINGS: There is a total hip arthroplasty. There is superior subluxation of the carpal component IMPRESSION: Superior subluxation of the femoral head of a total hip arthroplasty. No fracture seen
[2020-01-09] MEDS ORDERED: Sodium Chloride 0.9% 1,000 ML IV SCH (15:45)
[2020-01-09] MEDS ORDERED: Propofol 200 MG/20 ML SDV ONE (16:25)
[2020-01-09 17:16] VITALS: BP 130/81; PULSE 79
--- NOTE | 2020-01-10 09:33 | CR ---
Hip Min 1V Lt CLINICAL HISTORY: Postreduction FINDINGS: Previous prosthesis dislocation is reduced. No fracture is seen IMPRESSION: Reduction of dislocation No fracture
== END 2020-01-09 17:25 | disposition home or self-care (01) ==
LOC: JP.ED 15:08
DX: T84.021A Dislocation of internal left hip prosthesis, initial encounter (principal); I10 Essential (primary) hypertension; F41.9 Anxiety disorder, unspecified; E66.9 Obesity, unspecified; Z68.41 Body mass index [BMI] 40.0-44.9, adult; Z79.82 Long term (current) use of aspirin; Z79.899 Other long term (current) drug therapy; X58.XXXA Exposure to other specified factors, initial encounter
CPT/HCPCS: 27265; 73501-26-LT; 73501-LT; 96374; 99284-25; J1170; J2704; J7030

== ENCOUNTER 2020-01-15 10:41 | Emergency (ER) | payer MEDICAID ==
[2020-01-15 10:51] VITALS: BP 149/74; PULSE 66
[2020-01-15] MEDS ORDERED: HYDROmorphone 1 MG/ML Syringe IVPUSH ONE (10:51)
[2020-01-15] MEDS ORDERED: Ketamine 500 MG/5 ML MDV IV ONE (10:51)
--- NOTE | 2020-01-15 11:16 | EDM.PDOC ---
ED HPI GENERAL MEDICAL PROBLEM - General Chief Complaint: Lower Extremity Injury/Pain Stated Complaint: DISLOCATED L HIP Time Seen by Provider: 01/15/20 10:48 Source of Information: Reports: Patient, Old Records, RN Notes Reviewed History Limitations: Reports: No Limitations - History of Present Illness INITIAL COMMENTS - FREE TEXT/NARRATIVE: 49-year-old gentleman presents emergency department with a complaint of left hip pain, he has known history of hip location was actually in the emergency department 1 week ago for hip dislocation while working on a truck tire. He has contacted orthopedics they wanted to evaluate him tomorrow in clinic Left Hip Pain Score (Numeric/FACES): 10 - Related Data Allergies Allergy/AdvReac Type Severity Reaction Status Date / Time No Known Allergies Allergy Verified 01/09/20 15:34 Home Meds: Home Meds amLODIPine [Norvasc] 10 mg PO DAILY 11/06/15 [History] Sertraline [Zoloft] 25 mg PO DAILY 06/15/17 [History] Pantoprazole Sodium [Protonix] 40 mg PO BID #30 tablet. 06/16/17 [Rx] Fenofibrate 160 mg PO DAILY 07/06/17 [History] Aspirin 325 mg PO BID 05/01/19 [History] lisinopriL [Zestril] 20 mg PO DAILY 05/01/19 [History] Past Medical History HEENT History: Reports: Impaired Vision Other HEENT History: wears contacts occasionally Cardiovascular History: Reports: Hypertension Respiratory History: Reports: Sleep Apnea Other Respiratory History: c-pap Gastrointestinal History: Reports: Pancreatitis, PUD Musculoskeletal History: Reports: Fracture, Other (See Below) Other Musculoskeletal History: history of broken foot many years ago cURRENT FX R GREAT TOE Neurological History: Reports: Concussion Psychiatric History: Reports: Addiction, Anxiety Endocrine/Metabolic History: Reports: Obesity/BMI 30+ Hematologic History: Reports: None Immunologic History: Reports: None Oncologic (Cancer) History: Reports: None Dermatologic History: Reports: Cellulitis Other Dermatologic History: "just getting over cellulitis to right leg" - Infectious Disease History Infectious Disease History: Reports: Chicken Pox, MRSA Other Infectious Disease History: MRSA RIGHT KNEE 4 YEARS AGO - Past Surgical History Head Surgeries/Procedures: Reports: None HEENT Surgical History: Reports: Tonsillectomy Cardiovascular Surgical History: Reports: None Respiratory Surgical History: Reports: None GI Surgical History: Reports: EGD, Hernia, Inguinal, Hernia Repair/Other Other GI Surgeries/Procedures: Done x three Endocrine Surgical History: Reports: None Neurological Surgical History: Reports: None Musculoskeletal Surgical History: Reports: None, Hip Replacement Dermatological Surgical History: Reports: None Social & Family History - Family History Family Medical History: No Pertinent Family History Oncologic: Reports: Lymphoma - Tobacco Use Tobacco Use Status *Q: Never Tobacco User - Caffeine Use Caffeine Use: Reports: None, Soda - Recreational Drug Use Recreational Drug Use: No Review of Systems - Review of Systems Review Of Systems: See Below Constitutional: Reports: No Symptoms Musculoskeletal: Reports: Joint Pain, Muscle Pain ED EXAM, GENERAL - Physical Exam Exam: See Below Free Text/Narrative:: Examination of the left hip reveals a shortened rotated hip and leg he will not tolerate any type of exam Exam Limited By: No Limitations General Appearance: Alert, Mild Distress ED TRAUMA EXTREMITY PROCEDURES - Joint Reduction Left Hip Sedation: Conscious Sedation Pre-Procedure NV Status: Normal Post-Procedure NV Status: Normal Technique: Traction/Counter Traction (Captain Robbins technique) Number of Attempts: 1 Post-Reduction Imaging: Completely Reduced Joint Reduction Complications: No Course - Vital Signs Last Recorded V/S: Last Vital Signs Temp 97.6 F 01/15/20 10:52 Pulse 66 01/15/20 10:52 Resp 20 01/15/20 10:52 BP 149/74 H 01/15/20 10:52 Pulse Ox 98 01/15/20 10:52 - Orders/Labs/Meds Meds: Medications Discontinued Medications Generic Name Dose Route Start Last Admin Trade Name Freq PRN Reason Stop Dose Admin Hydromorphone HCl 1 mg 01/15/20 10:51 01/15/20 10:57 Dilaudid IVPUSH 01/15/20 10:52 1 mg ONETIME ONE Administration Ketamine HCl 20 mg 01/15/20 10:51 01/15/20 11:01 Ketalar IV 01/15/20 10:52 20 mg ONETIME ONE Administration Propofol Confirm 01/15/20 11:59 Diprivan 20 Ml Administered 01/15/20 12:00 Dose 400 mg .ROUTE .STK-MED ONE Departure - Departure Time of Disposition: 12:55 Disposition: Home, Self-Care 01 Condition: Fair Clinical Impression: Hip dislocation, left Qualifiers: Encounter type: initial encounter Qualified Code(s): S73.005A - Unspecified dislocation of left hip, initial encounter - Discharge Information Instructions: Hip Dislocation Referrals: PCP,None [Primary Care Provider] - Forms: ED Department Discharge Additional Instructions: Please report to orthopedics tomorrow at 10 AM for further evaluation call or return to the emergency department worsening of symptoms Sepsis Event Note (ED) - Evaluation Sepsis Screening Result: No Definite Risk - Focused Exam Vital Signs: Vital Signs Temp Pulse Resp BP Pulse Ox 01/15/20 10:52 97.6 F 66 20 149/74 H 98 01/15/20 10:48 97.6 F 66 20 149/74 H 98 - Assessment/Plan Plan: Assessment Acuity = acute Site and laterality = left hip dislocation with reduction Etiology = unknown Manifestations = none Location of injury = Home Lab values = x-rays described a dislocation and reduction above no fracture identified in the post reduction films Plan Call discussed case with Carlos Courtney orthopedic surgery [facility] at 1130 recommended additional films AP pelvis and lateral hip be done and an appointment with orthopedics tomorrow at 10 AM This note was dictated using [employer] voice recognition software please call with any questions on syntax or grammar.
--- NOTE | 2020-01-15 11:22 | CRLCR ---
INDICATION: Hip dislocation. COMPARISON: Radiographic examination of the left hip 01/09/2020. TECHNIQUE: Single AP radiograph portable left hip. FINDINGS: Total hip arthroplasty on the left with superior dislocation of the left hip. No evidence of fracture. Impression : 1. Total hip arthroplasty on the left. 2. Superior dislocation left hip. 3. No fracture. Dictated by Herberth Goodman MD @ Jan 15 2020 11:19AM Signed by Dr. Herberth Goodman @ Jan 15 2020 11:21AM
[2020-01-15] MEDS ORDERED: Propofol 200 MG/20 ML SDV ONE (11:59)
--- NOTE | 2020-01-15 12:44 | CRLCR ---
Indication: Status post reduction Technique: AP view of the pelvis was obtained as well as a lateral view the left hip. Comparison: Imaging from earlier the same day Findings: There is a left hip arthroplasty. The dislocation of the prosthetic glenohumeral joint has been reduced. The implant appears to be intact and I see no fracture of the surrounding osseous structures. Impression: There has been interval reduction of a left hip dislocation. There is a left hip arthroplasty. No visible failure the implant and no abnormal lucency or fracture about the implant Dictated by Triston Jones MD @ Jan 15 2020 12:39PM Signed by Dr. Triston Jones @ Jan 15 2020 12:42PM
== END 2020-01-15 13:10 | disposition home or self-care (01) ==
LOC: JP.ED 10:41
DX: T84.021A Dislocation of internal left hip prosthesis, initial encounter (principal); K27.9 Peptic ulcer, site unspecified, unspecified as acute or chronic, without hemorrhage or perforation; I10 Essential (primary) hypertension; F41.9 Anxiety disorder, unspecified; E66.9 Obesity, unspecified; Z79.899 Other long term (current) drug therapy; Z68.41 Body mass index [BMI] 40.0-44.9, adult; Z79.82 Long term (current) use of aspirin
CPT/HCPCS: 27252; 27265; 73501; 96374; 96375; 99283; 99284; J1170; J2704

== ENCOUNTER 2020-05-14 14:38 | Emergency (ER) | payer MEDICAID, OTHER ==
[2020-05-14 14:40] VITALS: BP 147/80; PULSE 85
[2020-05-14] MEDS ORDERED: Lidocaine 1% with EPINEPHrine 1:100,000 50 ML MDV SUBCUT STA (14:50)
[2020-05-14] MEDS ORDERED: Bacitracin Oint 1 GM U/D Packet TOP ONE (14:50)
--- NOTE | 2020-05-14 15:01 | EDM.PDOC ---
ED HPI GENERAL MEDICAL PROBLEM - General Chief Complaint: Laceration Stated Complaint: HEAD LACERATION Time Seen by Provider: 05/14/20 14:51 Source of Information: Reports: Patient, RN Notes Reviewed History Limitations: Reports: No Limitations - History of Present Illness INITIAL COMMENTS - FREE TEXT/NARRATIVE: 50-year-old gentleman presents emergency department today with a laceration to his scalp he slipped fell backwards hit a toolbox causing a large laceration left side occipital region bleeding is controlled by the time he arrives no loss of consciousness - Related Data Allergies Allergy/AdvReac Type Severity Reaction Status Date / Time No Known Allergies Allergy Verified 01/09/20 15:34 Home Meds: Home Meds amLODIPine [Norvasc] 10 mg PO DAILY 11/06/15 [History] Sertraline [Zoloft] 25 mg PO DAILY 06/15/17 [History] Pantoprazole Sodium [Protonix] 40 mg PO BID #30 tablet. 06/16/17 [Rx] Fenofibrate 160 mg PO DAILY 07/06/17 [History] Aspirin 325 mg PO BID 05/01/19 [History] lisinopriL [Zestril] 20 mg PO DAILY 05/01/19 [History] Past Medical History HEENT History: Reports: Impaired Vision Other HEENT History: wears contacts occasionally Cardiovascular History: Reports: Hypertension Respiratory History: Reports: Sleep Apnea Other Respiratory History: c-pap Gastrointestinal History: Reports: Pancreatitis, PUD Musculoskeletal History: Reports: Fracture, Other (See Below) Other Musculoskeletal History: history of broken foot many years ago cURRENT FX R GREAT TOE Neurological History: Reports: Concussion Psychiatric History: Reports: Addiction, Anxiety Endocrine/Metabolic History: Reports: Obesity/BMI 30+ Hematologic History: Reports: None Immunologic History: Reports: None Oncologic (Cancer) History: Reports: None Dermatologic History: Reports: Cellulitis Other Dermatologic History: "just getting over cellulitis to right leg" - Infectious Disease History Infectious Disease History: Reports: Chicken Pox, MRSA Other Infectious Disease History: MRSA RIGHT KNEE 4 YEARS AGO - Past Surgical History Head Surgeries/Procedures: Reports: None HEENT Surgical History: Reports: Tonsillectomy Cardiovascular Surgical History: Reports: None Respiratory Surgical History: Reports: None GI Surgical History: Reports: EGD, Hernia, Inguinal, Hernia Repair/Other Other GI Surgeries/Procedures: Done x three Endocrine Surgical History: Reports: None Neurological Surgical History: Reports: None Musculoskeletal Surgical History: Reports: None, Hip Replacement Dermatological Surgical History: Reports: None Social & Family History - Family History Family Medical History: No Pertinent Family History Oncologic: Reports: Lymphoma - Tobacco Use Tobacco Use Status *Q: Current Every Day Tobacco User Years of Tobacco use: 7 Packs/Tins Daily: 1 - Caffeine Use Caffeine Use: Reports: Soda - Recreational Drug Use Recreational Drug Use: No ED ROS GENERAL - Review of Systems Review Of Systems: See Below Constitutional: Reports: No Symptoms Skin: Reports: Wound Neurological: Reports: No Symptoms ED EXAM, SKIN/RASH Exam: See Below Exam Limited By: No Limitations General Appearance: Alert, WD/WN, No Apparent Distress Eye Exam: Bilateral Eye: EOMI, Normal Inspection, PERRL Ears: Normal External Exam, Normal Canal, Hearing Grossly Normal, Normal TMs Nose: Normal Inspection, Normal Mucosa, No Blood Head: Normocephalic, Other (Centimeter laceration parietal occipital region left side) Respiratory/Chest: No Respiratory Distress Neurological: Alert, Oriented, Normal Cognition, Normal Gait ED SKIN PROCEDURES - Laceration/Wound Repair Left Head Appearance: Subcutaneous, Irregular, Clean Distal NVT: Neuro & Vascular Intact, No Tendon Injury Anesthetic Type: Local Local Anesthesia - Lidocaine (Xylocaine): 1% with EPI Local Anesthetic Volume: Other (7) Skin Prep: Saline Saline Irrigation (cc's): 250 Exploration/Debridement/Repair: Wound Explored, In a Bloodless Field, Explored to Base Closed with: [place] Lac/Wound length In cm: 10 # of Sutures: 18 Sterile Dressing Applied: Nurse Tetanus Status Addressed: Yes Complications: No Course - Vital Signs Last Recorded V/S: Last Vital Signs Temp 98.5 F 05/14/20 14:39 Pulse 85 05/14/20 14:39 Resp 16 05/14/20 14:39 BP 147/80 H 05/14/20 14:39 Pulse Ox 99 05/14/20 14:39 - Orders/Labs/Meds Meds: Medications Discontinued Medications Generic Name Dose Route Start Last Admin Trade Name Freq PRN Reason Stop Dose Admin Bacitracin 2 dose 05/14/20 14:50 05/14/20 15:07 Bacitracin Oint 1 Gm U/D Packet TOP 05/14/20 14:51 2 dose ONETIME ONE Administration Lidocaine/Epinephrine 20 ml 05/14/20 14:50 05/14/20 15:07 Lidocaine 1% With Epinephrine 1:100,000 50 Ml Mdv SUBCUT 05/14/20 14:51 20 ml NOW STA Administration Departure - Departure Time of Disposition: 15:34 Disposition: Home, Self-Care 01 Condition: Fair Clinical Impression: Laceration of head Qualifiers: Encounter type: initial encounter Location of open wound of head: scalp Foreign body presence: without foreign body Qualified Code(s): S01.01XA - Laceration without foreign body of scalp, initial encounter - Discharge Information Instructions: Laceration Care, Adult Referrals: PCP,None [Primary Care Provider] - Forms: ED Department Discharge Additional Instructions: staple removal 10 days, return to clinic or emergency department for staple removal follow wound care instruction sheet Sepsis Event Note (ED) - Evaluation Sepsis Screening Result: No Definite Risk - Focused Exam Vital Signs: Vital Signs Temp Pulse Resp BP Pulse Ox 05/14/20 14:39 98.5 F 85 16 147/80 H 99 - Assessment/Plan Plan: Assessment Acuity = acute Site and laterality = scalp laceration Etiology = secondary to fall Manifestations = none Location of injury = Home/work Lab values = none Plan Staple removal in 10 days, follow-up primary care return to the emergency department for staple removal This note was dictated using [employer] voice recognition software please call with any questions on syntax or grammar.
== END 2020-05-14 15:50 | disposition home or self-care (01) ==
LOC: JP.ED 14:38
DX: S01.01XA Laceration without foreign body of scalp, initial encounter (principal); I10 Essential (primary) hypertension; E66.9 Obesity, unspecified; Z68.41 Body mass index [BMI] 40.0-44.9, adult; Z72.0 Tobacco use; Z79.82 Long term (current) use of aspirin; Z79.899 Other long term (current) drug therapy; W01.198A Fall on same level from slipping, tripping and stumbling with subsequent striking against other object, initial encounter
CPT/HCPCS: 12004; 99282; 99282-25

== ENCOUNTER 2020-09-14 08:55 | Emergency (ER) | payer OTHER ==
[2020-09-14 09:57] VITALS: BP 150/95; PULSE 96
--- NOTE | 2020-09-14 10:24 | EDM.PDOC ---
ED HPI GENERAL MEDICAL PROBLEM - General Chief Complaint: Wound Recheck Stated Complaint: INSITIONS BLEEDING Time Seen by Provider: 09/14/20 10:24 Source of Information: Reports: Patient, RN - History of Present Illness INITIAL COMMENTS - FREE TEXT/NARRATIVE: Nick is a 50 year old male whom presents to [facility] ER for concerns regarding post surgical incisional bleeding. Nick has a left knee replacement about 1 month ago but resulted in skin infection (staph epi). Nick has surgical washout of the area due to infection on Wednesday with wound closure and BRAN drain placement. Nick reports known serous lateral knee area which was the site of drain placement. Nick has been doing well with mobility and pain management. Nick reported increased bleeding from inferior portion of his excision yes afternoon. Nick removed the saturated dressing this am after he woke up in a pool of blood on sheets. Nick has subsequently removed the dressing 2-3 times due to saturated with blood (fluid). Nick believes the initial dressing was silver melpelex to prevent infection risk at incision site. - Related Data Allergies Allergy/AdvReac Type Severity Reaction Status Date / Time No Known Allergies Allergy Verified 09/14/20 10:41 Home Meds: Home Meds amLODIPine [Norvasc] 10 mg PO DAILY 11/06/15 [History] Sertraline [Zoloft] 25 mg PO DAILY 06/15/17 [History] Pantoprazole Sodium [Protonix] 40 mg PO BID #30 tablet. 06/16/17 [Rx] Fenofibrate 160 mg PO DAILY 07/06/17 [History] Aspirin 325 mg PO BID 05/01/19 [History] lisinopriL [Zestril] 20 mg PO DAILY 05/01/19 [History] Past Medical History HEENT History: Reports: Impaired Vision Other HEENT History: wears contacts occasionally Cardiovascular History: Reports: Hypertension Respiratory History: Reports: Sleep Apnea Other Respiratory History: c-pap Gastrointestinal History: Reports: Pancreatitis, PUD Musculoskeletal History: Reports: Fracture, Other (See Below) Other Musculoskeletal History: history of broken foot many years ago cURRENT FX R GREAT TOE Neurological History: Reports: Concussion Psychiatric History: Reports: Addiction, Anxiety Endocrine/Metabolic History: Reports: Obesity/BMI 30+ Hematologic History: Reports: None Immunologic History: Reports: None Oncologic (Cancer) History: Reports: None Dermatologic History: Reports: Cellulitis Other Dermatologic History: "just getting over cellulitis to right leg" - Infectious Disease History Infectious Disease History: Reports: Chicken Pox, MRSA Other Infectious Disease History: MRSA RIGHT KNEE 4 YEARS AGO - Past Surgical History Head Surgeries/Procedures: Reports: None HEENT Surgical History: Reports: Tonsillectomy Cardiovascular Surgical History: Reports: None Respiratory Surgical History: Reports: None GI Surgical History: Reports: EGD, Hernia, Inguinal, Hernia Repair/Other Other GI Surgeries/Procedures: Done x three Endocrine Surgical History: Reports: None Neurological Surgical History: Reports: None Musculoskeletal Surgical History: Reports: None, Hip Replacement Dermatological Surgical History: Reports: None Social & Family History - Family History Family Medical History: No Pertinent Family History Oncologic: Reports: Lymphoma - Caffeine Use Caffeine Use: Reports: Soda ED ROS GENERAL - Review of Systems Review Of Systems: Comprehensive ROS is negative, except as noted in HPI. ED EXAM, SKIN/RASH Exam: See Below Exam Limited By: No Limitations General Appearance: Alert, WD/WN, No Apparent Distress Eye Exam: Bilateral Eye: Normal Inspection Ears: Hearing Grossly Normal Nose: Normal Inspection Throat/Mouth: Normal Inspection, Normal Lips, Normal Voice, No Airway Compromise Head: Atraumatic Neck: Normal Inspection, Full Range of Motion Respiratory/Chest: No Respiratory Distress, Lungs Clear, Normal Breath Sounds Cardiovascular: Normal Peripheral Pulses, Regular Rate, Rhythm (Male) Exam: Deferred Rectal (Males) Exam: Deferred Extremities: Other (left leg anterior knee incision noted with saturated blood dressing. Dressing was removed. Incision intact with brisk oozing from distal incision. No signs of infection, erythema, warmth, localized pain or induration. Area was massaged and palpable seroma note with serousangunois fluid expressed. ) Neurological: Alert, Oriented, CN II-XII Intact, Normal Cognition, Normal Gait Skin: Warm, Dry, Intact, Normal Color, No Rash, Other (Left anterior knee incision: serosangrenous fluid expressed from the wound. Area with massaged and milkd to remove all of the remaining fluid. Dry dressing and claudia wrap/pressure applied to prevent repeat accumulation. IV infusing and recheck planned. ) ED SKIN PROCEDURES - Additional/Other Procedure(s) Other (Free Text) Procedure(s): Left knee incision/post surgical seroma: Clear serosanguineous fluid approximately 30 cc expressed before pressure dressing applied. Course - Vital Signs Last Recorded V/S: Last Vital Signs Temp 36.6 C 09/14/20 10:46 Pulse 96 09/14/20 10:46 Resp 14 09/14/20 10:46 BP 150/95 H 09/14/20 10:46 Pulse Ox 98 09/14/20 10:46 - Re-Assessments/Exams Free Text/Narrative Re-Assessment/Exam: Left anterior knee incision recheck: Dry non-adherent and absorbant dressing applied with clauida wraps while IV infusing. Dressing is essential dry with scant amount of blood distal 4x4. Dressing and claudia warp reapplied and home care instruction shared with patient. Silver dressing is not available in the department but may be reapplied on Wednesday during Orthopedic recheck appointment, if wound stabilized. 09/14/20 11:24 Departure - Departure Time of Disposition: 11:36 Disposition: Home, Self-Care 01 Clinical Impression: Seroma after procedure, S/P knee surgery - Discharge Information Referrals: Otto Cole [employer]ING [employer] FINANCE INSTRUCTOR [Primary Care Provider] - Forms: ED Department Discharge Additional Instructions: 1. Leave current dressing in placed until tomorrow morning or during recheck. 2. Pressure dressing in placed to prevent reaccumulation of post surgical seroma. 3. If dressing becomes saturated remove and replace after gentle cleaning. 4. Silver dressing may be replaced at Orthopedic clinic Wednesday if dressing remains dry and stable. 5. Return to ER sooner if concerns, changes, new, worsening symptoms or concerns. Sepsis Event Note (ED) - Focused Exam Vital Signs: Vital Signs Temp Pulse Resp BP Pulse Ox 09/14/20 10:46 36.6 C 96 14 150/95 H 98 09/14/20 09:56 36.6 C 96 14 150/95 H 98
== END 2020-09-14 12:09 | disposition home or self-care (01) ==
LOC: JP.ED 08:55
DX: M96.842 Postprocedural seroma of a musculoskeletal structure following a musculoskeletal system procedure (principal); I10 Essential (primary) hypertension; E66.9 Obesity, unspecified; Z79.82 Long term (current) use of aspirin; Z79.899 Other long term (current) drug therapy; Z68.41 Body mass index [BMI] 40.0-44.9, adult
CPT/HCPCS: 99283

== ENCOUNTER 2020-12-03 10:15 | Emergency (ER) | payer OTHER ==
[2020-12-03 10:32] VITALS: BP 138/86; PULSE 72
--- NOTE | 2020-12-03 10:58 | EDM.PDOC ---
ED HPI GENERAL MEDICAL PROBLEM - General Chief Complaint: Lower Extremity Injury/Pain Stated Complaint: MEDICAL Time Seen by Provider: 12/03/20 10:40 Source of Information: Reports: Patient History Limitations: Reports: No Limitations - History of Present Illness INITIAL COMMENTS - FREE TEXT/NARRATIVE: 50-year-old male bumped the right house yesterday while working in the yard, and developed a small lump over the next several minutes that look like a "baseball". Today it is more diffuse swelling over the entire anterior right lower leg. It is sore to palpation but there is no bony tenderness, no swelling or discoloration of the foot. He is not on anticoagulants. Onset: Gradual Duration: Day(s): (Worsening over the past 24 hours) Location: Reports: Lower Extremity, Right Associated Symptoms: Reports: No Other Symptoms Right Lower Leg Pain Score (Numeric/FACES): 4 - Related Data Allergies Allergy/AdvReac Type Severity Reaction Status Date / Time No Known Allergies Allergy Verified 12/03/20 10:39 Home Meds: Home Meds amLODIPine [Norvasc] 10 mg PO DAILY 11/06/15 [History] Sertraline [Zoloft] 25 mg PO DAILY 06/15/17 [History] Pantoprazole Sodium [Protonix] 40 mg PO BID #30 tablet. 06/16/17 [Rx] Fenofibrate 160 mg PO DAILY 07/06/17 [History] lisinopriL [Zestril] 20 mg PO DAILY 05/01/19 [History] Past Medical History HEENT History: Reports: Impaired Vision Other HEENT History: wears contacts occasionally Cardiovascular History: Reports: Hypertension Respiratory History: Reports: Sleep Apnea Other Respiratory History: c-pap Gastrointestinal History: Reports: Pancreatitis, PUD Musculoskeletal History: Reports: Fracture, Other (See Below) Other Musculoskeletal History: history of broken foot many years ago cURRENT FX R GREAT TOE Neurological History: Reports: Concussion Psychiatric History: Reports: Addiction, Anxiety Endocrine/Metabolic History: Reports: Obesity/BMI 30+ Hematologic History: Reports: None Immunologic History: Reports: None Oncologic (Cancer) History: Reports: None Dermatologic History: Reports: Cellulitis Other Dermatologic History: "just getting over cellulitis to right leg" - Infectious Disease History Infectious Disease History: Reports: Chicken Pox, MRSA Other Infectious Disease History: MRSA RIGHT KNEE 4 YEARS AGO - Past Surgical History Head Surgeries/Procedures: Reports: None HEENT Surgical History: Reports: Tonsillectomy Cardiovascular Surgical History: Reports: None Respiratory Surgical History: Reports: None GI Surgical History: Reports: EGD, Hernia, Inguinal, Hernia Repair/Other Other GI Surgeries/Procedures: Done x three Endocrine Surgical History: Reports: None Neurological Surgical History: Reports: None Musculoskeletal Surgical History: Reports: None, Hip Replacement Dermatological Surgical History: Reports: None Social & Family History - Family History Family Medical History: No Pertinent Family History Oncologic: Reports: Lymphoma - Tobacco Use Tobacco Use Status *Q: Current Every Day Tobacco User Years of Tobacco use: 6 Packs/Tins Daily: 1 - Caffeine Use Caffeine Use: Reports: Soda - Recreational Drug Use Recreational Drug Use: No Review of Systems - Review of Systems Review Of Systems: See Below Constitutional: Denies: Fever Respiratory: Denies: Shortness of Breath Cardiovascular: Denies: Chest Pain GI/Abdominal: Denies: Abdominal Pain, Nausea, Vomiting Skin: Reports: Bruising (Slight bruising is developing over the right lower leg, very small abrasion) Neurological: Reports: No Symptoms. Denies: Headache Psychiatric: Reports: No Symptoms ED EXAM, GENERAL - Physical Exam Exam: See Below Exam Limited By: No Limitations General Appearance: Alert, No Apparent Distress Head: Atraumatic Respiratory/Chest: No Respiratory Distress Cardiovascular: Regular Rate, Rhythm Extremities: Other (Exam is otherwise limited to the lower extremities. The patient has diffuse swelling through the anterior right lower leg with mild tenderness to palpation. No tenderness to the tibial plateau or gastrocnemius.) Neurological: Alert, Oriented Psychiatric: Normal Affect, Normal Mood Skin Exam: Warm, Dry Course - Vital Signs Last Recorded V/S: Last Vital Signs Temp 97.5 F 12/03/20 10:36 Pulse 72 12/03/20 10:36 Resp 16 12/03/20 10:36 BP 138/86 12/03/20 10:36 Pulse Ox 99 12/03/20 10:36 - Re-Assessments/Exams Free Text/Narrative Re-Assessment/Exam: 12/03/20 10:57 This patient has developed a hematoma in the right anterior lower leg. A 6 inch Zachary wrap was applied firmly through the foot ankle and lower leg on the right side. He is to wear this for the next several days, elevate the leg, and increase activity slowly. Recheck in 3 or 4 days if not improving satisfactorily, surgical consultation may be needed. Departure - Departure Time of Disposition: 11:05 Disposition: Home, Self-Care 01 Clinical Impression: Hematoma of right lower leg - Discharge Information Instructions: Hematoma Referrals: Otto Cole MUNICIP[employer] FIREFIGHTER [Primary Care Provider] - Forms: ED Department Discharge Care Plan Goals: Use Zachary wrap consistently for the next several days to apply pressure to the hematoma, elevate when able and increase activity slowly. Consider rechecking in 3 or 4 days if not improving satisfactorily. Sepsis Event Note (ED) - Evaluation Sepsis Screening Result: No Definite Risk - Focused Exam Vital Signs: Vital Signs Temp Pulse Resp BP Pulse Ox 12/03/20 10:36 97.5 F 72 16 138/86 99 12/03/20 10:28 97.5 F 72 16 138/86 99
== END 2020-12-03 11:15 | disposition home or self-care (01) ==
LOC: JP.ED 10:15
DX: S80.11XA Contusion of right lower leg, initial encounter (principal); E66.9 Obesity, unspecified; Z79.899 Other long term (current) drug therapy; Z72.0 Tobacco use; Z68.41 Body mass index [BMI] 40.0-44.9, adult; W22.09XA Striking against other stationary object, initial encounter
CPT/HCPCS: 99283

== ENCOUNTER 2021-03-27 09:06 | Emergency (ER) | payer OTHER ==
[2021-03-27] MEDS ORDERED: Lidocaine 1% with EPINEPHrine 1:100,000 50 ML MDV INFILT ONE (09:13)
[2021-03-27 09:19] VITALS: BP 166/86; PULSE 79
[2021-03-27] MEDS ORDERED: Bacitracin Oint 1 GM U/D Packet TOP ONE (09:53)
== END 2021-03-27 10:05 | disposition home or self-care (01) ==
LOC: JP.ED 09:06
DX: S01.111A Laceration without foreign body of right eyelid and periocular area, initial encounter (principal); S05.01XA Injury of conjunctiva and corneal abrasion without foreign body, right eye, initial encounter; R55 Syncope and collapse; I10 Essential (primary) hypertension; E66.9 Obesity, unspecified; Z68.41 Body mass index [BMI] 40.0-44.9, adult; Z72.0 Tobacco use; Z79.899 Other long term (current) drug therapy; W22.09XA Striking against other stationary object, initial encounter
CPT/HCPCS: 12013; 99283; 99284-25

== ENCOUNTER 2021-06-12 07:30 | Day surgery (SDC) | payer OTHER ==
[2021-06-12] MEDS ORDERED: fentaNYL 100 MCG/2 ML SDV ONE (07:41)
[2021-06-12] MEDS ORDERED: Midazolam 1 MG/ML 2 ML SDV ONE (07:41)
[2021-06-12] MEDS ORDERED: Propofol 200 MG/20 ML SDV ONE ×4 (07:41→09:09)
[2021-06-12] MEDS ORDERED: Sodium Chloride 0.9% 1,000 ML IV SCH (08:00)
[2021-06-12 08:25] LABS: CORONAVIRUS COVID-19 NAA NEGATIVE (NEGATIVE)
[2021-06-12 10:04] VITALS: BP 144/93; PULSE 77
== END 2021-06-12 10:15 | disposition home or self-care (01) ==
LOC: JP.SDS 07:30
PROVIDERS: ATTEND Family Medicine
DX: Z12.11 Encounter for screening for malignant neoplasm of colon (principal); D12.4 Benign neoplasm of descending colon; I10 Essential (primary) hypertension; G47.33 Obstructive sleep apnea (adult) (pediatric); K21.9 Gastro-esophageal reflux disease without esophagitis; F17.210 Nicotine dependence, cigarettes, uncomplicated; E66.9 Obesity, unspecified; Z68.41 Body mass index [BMI] 40.0-44.9, adult
CPT/HCPCS: 0241U; 88305; J2250; J2704; J3010; J7030

== ENCOUNTER 2021-08-22 13:52 | Emergency (ER) | payer OTHER ==
[2021-08-22] MEDS ORDERED: fentaNYL 100 MCG/2 ML SDV IVPUSH ONE (14:06)
[2021-08-22] MEDS ORDERED: Sodium Chloride 0.9% 10 ML Syringe FLUSH PRN (14:06)
[2021-08-22] MEDS ORDERED: Sodium Chloride 0.9% 1,000 ML IV SCH (14:30)
[2021-08-22] MEDS ORDERED: HYDROmorphone 1 MG/ML Syringe IVPUSH ONE (15:01)
[2021-08-22] MEDS ORDERED: Propofol 200 MG/20 ML SDV ONE (15:05)
[2021-08-22 15:54] VITALS: BP 112/73; PULSE 80
== END 2021-08-22 16:06 | disposition home or self-care (01) ==
LOC: JP.ED 13:52
DX: S73.005A Unspecified dislocation of left hip, initial encounter (principal); K21.9 Gastro-esophageal reflux disease without esophagitis; I10 Essential (primary) hypertension; F17.210 Nicotine dependence, cigarettes, uncomplicated; E66.9 Obesity, unspecified; Z68.30 Body mass index [BMI] 30.0-30.9, adult; Z79.899 Other long term (current) drug therapy; Z86.16 Personal history of COVID-19; X50.1XXA Overexertion from prolonged static or awkward postures, initial encounter
CPT/HCPCS: 27265; 27266; 73501; 96361; 96374; 99281; 99283; J1170; J2704; J3010; J3490; J7030

== ENCOUNTER 2022-01-31 14:41 | Emergency (ER) | payer OTHER ==
[2022-01-31 15:08] VITALS: BP 142/83; PULSE 81
[2022-01-31] MEDS ORDERED: Lidocaine 1% with EPINEPHrine 1:100,000 50 ML MDV SUBCUT STA (15:17)
[2022-01-31] MEDS ORDERED: Bacitracin Oint 1 GM U/D Packet TOP ONE (15:17)
== END 2022-01-31 15:54 | disposition home or self-care (01) ==
LOC: JP.ED 14:41
DX: S81.812A Laceration without foreign body, left lower leg, initial encounter (principal); I10 Essential (primary) hypertension; F17.210 Nicotine dependence, cigarettes, uncomplicated; E66.9 Obesity, unspecified; Z68.41 Body mass index [BMI] 40.0-44.9, adult; Z79.899 Other long term (current) drug therapy; W26.8XXA Contact with other sharp object(s), not elsewhere classified, initial encounter
CPT/HCPCS: 12001; 99282

== ENCOUNTER 2022-11-11 14:21 | Emergency (ER) | payer BC, OTHER ==
[2022-11-11] MEDS ORDERED: Sodium Chloride 0.9% 10 ML Syringe FLUSH PRN (15:10)
[2022-11-11] MEDS ORDERED: HYDROmorphone 1 MG/ML Syringe IVPUSH ONE (15:10)
[2022-11-11] MEDS ORDERED: LORazepam 2 MG/ML SDV IVPUSH ONE (15:19)
[2022-11-11] MEDS ORDERED: Propofol 200 MG/20 ML SDV ONE (16:15)
[2022-11-11 16:52] VITALS: BP 138/76; PULSE 68
== END 2022-11-11 16:52 | disposition home or self-care (01) ==
LOC: JP.ED 14:21
DX: S73.005A Unspecified dislocation of left hip, initial encounter (principal); I10 Essential (primary) hypertension; E66.9 Obesity, unspecified; Z68.41 Body mass index [BMI] 40.0-44.9, adult; F17.210 Nicotine dependence, cigarettes, uncomplicated
CPT/HCPCS: 27265; 73501; 96374; 99283; J1170; J2704